=== PATIENT | male | born 1950 | race Caucasian/White ===

== ENCOUNTER 2018-09-19 17:07 | Inpatient (IN) | payer OTHER ==
[~2018-09-19] VITALS: Ht 175.3 cm; Wt 95.3 kg
[2018-09-19] MEDS ORDERED: OXYC10TA56 PO (18:47)
[2018-09-19] MEDS ORDERED: PERC10 GT (18:47)
[2018-09-19] MEDS ORDERED: ALPR0.5T PO (18:47)
[2018-09-19 18:50] VITALS: BP_SYST 199
[2018-09-19] MEDS ORDERED: OXYCODONE/ACETAMINOPHEN *10*mg/325 mg TABLET GT ONE (19:15)
[2018-09-19] MEDS: cloNIDine HCL 0.2 MG TABLET PO SCH (20:16)
[2018-09-19] MEDS: ALPRAZolam 0.25 MG TABLET PO SCH (20:18)
[2018-09-19 20:45] VITALS: BP_SYST 207
[2018-09-19] MEDS: LOSARTAN POTASSIUM 50 MG TABLET (COZAAR) PO SCH (23:24)
[2018-09-19] MEDS: cloNIDine HCL 0.1 MG TABLET PO PRN (23:24)
[2018-09-19] MEDS: CARVEDILOL 25 MG TABLET (COREG) PO SCH (23:25)
[2018-09-19] MEDS: CYCLOBENZAPRINE HCL 10 MG TABLET (FLEXERIL) PO SCH (23:26)
[2018-09-19] MEDS: ENOXAPARIN SODIUM 40 MG/0.4 ML SYRINGE SUBCUT SCH (23:27)
[2018-09-19] MEDS: OXYCODONE/ACETAMINOPHEN *10*mg/325 mg TABLET GT SCH (23:29)
[2018-09-20] VITALS (8 sets, daily range): BP systolic 137–192
[2018-09-20] MEDS: oxyCODONE HCL 10 MG TAB.ER.12H PO SCH (00:26)
[2018-09-20] MEDS: OXYCODONE/ACETAMINOPHEN *10*mg/325 mg TABLET GT SCH ×3 (06:16→16:57)
[2018-09-20 07:44] LABS: BASOPHILS % (AUTO) 0.3 % (0.0-2.0); EOSINOPHILS # (AUTO) 0.4 K/uL (0.0-0.4); EOSINOPHILS % (AUTO) 4.5 % (0.0-4.0); HEMOGLOBIN 12.7 g/dL (14.0-18.0); LYMPHOCYTES # (AUTO) 1.9 K/uL (1.0-5.5); LYMPHOCYTES % (AUTO) 24.3 % (20.5-51.5); MEAN CORPUSCULAR HEMOGLOBIN 30 pg (27-31); MEAN CORPUSCULAR HGB CONC 32 % (32-36); MEAN CORPUSCULAR VOLUME 95 fL (79.0-98.0); MONOCYTES # (AUTO) 0.7 K/uL (0.0-1.0); MONOCYTES % (AUTO) 9.2 % (1.7-9.3); NEUTROPHILS # (AUTO) 4.9 K/uL (1.8-7.7); NEUTROPHILS % (AUTO) 61.7 % (40.0-70.0); PLATELET COUNT (AUTO) 224 K/uL (130-430); RED BLOOD CELL COUNT(AUTO) 4.21 MIL/uL (4.2-6.2); RED CELL DISTRIBUTION WIDTH 14.7 % (9.0-15.0); WHITE BLOOD COUNT (AUTO) 7.9 K/uL (4.8-10.8)
[2018-09-20 07:54] LABS: CALCIUM 8.8 mg/dL (8.4-11.0); CREATININE 0.77 mg/dL (0.55-1.30)
[2018-09-20 08:10] LABS: POTASSIUM 2.8 mmol/L (3.5-5.1)
[2018-09-20] MEDS: CARVEDILOL 25 MG TABLET (COREG) PO SCH ×2 (08:54→21:08)
[2018-09-20] MEDS: LOSARTAN POTASSIUM 50 MG TABLET (COZAAR) PO SCH ×2 (08:55→21:09)
[2018-09-20] MEDS: cloNIDine HCL 0.2 MG TABLET PO SCH ×2 (08:55→21:08)
[2018-09-20] MEDS: KETOROLAC TROMETHAMINE 15 MG VIAL IVP PRN ×2 (08:57→19:02)
[2018-09-20] MEDS ORDERED: POTASSIUM CHLORIDE 20 MEQ TAB.PRT.SR PO ONE ×2 (11:00→15:00)
[2018-09-20] MEDS: cloNIDine HCL 0.1 MG TABLET PO PRN (15:07)
[2018-09-20] MEDS ORDERED: LOSARTAN POTASSIUM 50 MG TABLET (COZAAR) PO SCH (21:00)
[2018-09-20] MEDS: ALPRAZolam 0.25 MG TABLET PO SCH (21:03)
[2018-09-20] MEDS: CYCLOBENZAPRINE HCL 10 MG TABLET (FLEXERIL) PO SCH (21:08)
[2018-09-20] MEDS: ENOXAPARIN SODIUM 40 MG/0.4 ML SYRINGE SUBCUT SCH (21:09)
[2018-09-21] MEDS: OXYCODONE/ACETAMINOPHEN *10*mg/325 mg TABLET GT SCH ×5 (00:32→23:34)
[2018-09-21] MEDS: KETOROLAC TROMETHAMINE 15 MG VIAL IVP PRN (03:33)
[2018-09-21 07:32] LABS: CALCIUM 8.7 mg/dL (8.4-11.0); CREATININE 0.8 mg/dL (0.55-1.30); POTASSIUM 3.7 mmol/L (3.5-5.1)
[2018-09-21] MEDS: oxyCODONE HCL 10 MG TAB.ER.12H PO SCH (08:40)
[2018-09-21] MEDS: cloNIDine HCL 0.2 MG TABLET PO SCH ×2 (08:42→21:30)
[2018-09-21] MEDS: CARVEDILOL 25 MG TABLET (COREG) PO SCH ×2 (08:42→21:31)
[2018-09-21] MEDS: LOSARTAN POTASSIUM 50 MG TABLET (COZAAR) PO SCH ×2 (08:42→21:30)
[2018-09-21 12:01] VITALS: BP_SYST 149
[2018-09-21] MEDS ORDERED: ALPRAZolam 0.25 MG TABLET PO ONE (12:45)
[2018-09-21 17:23] VITALS: BP_SYST 168
[2018-09-21] MEDS: CYCLOBENZAPRINE HCL 10 MG TABLET (FLEXERIL) PO SCH (21:29)
[2018-09-21] MEDS: ALPRAZolam 0.25 MG TABLET PO SCH (21:29)
[2018-09-21] MEDS: MORPHINE SULFATE 15 MG TABLET.ER PO SCH (21:31)
[2018-09-21] MEDS: ENOXAPARIN SODIUM 40 MG/0.4 ML SYRINGE SUBCUT SCH (21:33)
[2018-09-22 00:55] VITALS: BP_SYST 174
[2018-09-22] MEDS: OXYCODONE/ACETAMINOPHEN *10*mg/325 mg TABLET GT SCH ×2 (05:40→11:50)
[2018-09-22 08:10] VITALS: BP_SYST 176
[2018-09-22] MEDS: cloNIDine HCL 0.2 MG TABLET PO SCH ×2 (09:32→20:32)
[2018-09-22] MEDS: MORPHINE SULFATE 15 MG TABLET.ER PO SCH ×2 (09:32→20:35)
[2018-09-22] MEDS: LOSARTAN POTASSIUM 50 MG TABLET (COZAAR) PO SCH ×2 (09:32→20:33)
[2018-09-22] MEDS: CARVEDILOL 25 MG TABLET (COREG) PO SCH ×2 (09:33→20:35)
[2018-09-22 12:09] VITALS: BP_SYST 170
[2018-09-22] MEDS: oxyCODONE HCL 10 MG TAB.ER.12H PO SCH (13:07)
[2018-09-22 16:02] VITALS: BP_SYST 148
[2018-09-22] MEDS: OXYCODONE/ACETAMINOPHEN *10*mg/325 mg TABLET PO SCH ×2 (18:20→23:53)
[2018-09-22] MEDS: ENOXAPARIN SODIUM 40 MG/0.4 ML SYRINGE SUBCUT SCH (20:33)
[2018-09-22] MEDS: CYCLOBENZAPRINE HCL 10 MG TABLET (FLEXERIL) PO SCH (20:34)
[2018-09-22] MEDS: ALPRAZolam 0.25 MG TABLET PO SCH (20:34)
[2018-09-22] MEDS: cloNIDine HCL 0.1 MG TABLET PO PRN (23:52)
[2018-09-23 00:21] VITALS: BP_SYST 164
[2018-09-23 04:15] VITALS: BP_SYST 156
[2018-09-23] MEDS: OXYCODONE/ACETAMINOPHEN *10*mg/325 mg TABLET PO SCH ×3 (06:25→17:05)
[2018-09-23] MEDS: CARVEDILOL 25 MG TABLET (COREG) PO SCH ×2 (08:59→20:56)
[2018-09-23] MEDS: cloNIDine HCL 0.2 MG TABLET PO SCH ×2 (08:59→20:55)
[2018-09-23] MEDS: LOSARTAN POTASSIUM 50 MG TABLET (COZAAR) PO SCH ×2 (08:59→20:54)
[2018-09-23] MEDS: MORPHINE SULFATE 15 MG TABLET.ER PO SCH ×2 (09:00→20:56)
[2018-09-23] MEDS: KETOROLAC TROMETHAMINE 15 MG VIAL IVP PRN (09:00)
[2018-09-23 11:54] VITALS: BP_SYST 140
[2018-09-23] MEDS: oxyCODONE HCL 5 MG TABLET PO PRN ×2 (13:20→17:38)
[2018-09-23 16:16] VITALS: BP_SYST 159
[2018-09-23 20:05] VITALS: BP_SYST 145
[2018-09-23 20:15] VITALS: BP_SYST 177
[2018-09-23] MEDS: ALPRAZolam 0.25 MG TABLET PO SCH (20:54)
[2018-09-23] MEDS: ENOXAPARIN SODIUM 40 MG/0.4 ML SYRINGE SUBCUT SCH (20:58)
[2018-09-23] MEDS: CYCLOBENZAPRINE HCL 10 MG TABLET (FLEXERIL) PO SCH (20:59)
[2018-09-24 00:02] VITALS: BP_SYST 142
[2018-09-24] MEDS: OXYCODONE/ACETAMINOPHEN *10*mg/325 mg TABLET PO SCH ×4 (00:13→17:34)
[2018-09-24] MEDS: KETOROLAC TROMETHAMINE 15 MG VIAL IVP PRN ×2 (06:53→13:26)
[2018-09-24 07:40] VITALS: BP_SYST 167
[2018-09-24] MEDS: cloNIDine HCL 0.2 MG TABLET PO SCH ×2 (08:37→21:26)
[2018-09-24] MEDS: MORPHINE SULFATE 15 MG TABLET.ER PO SCH ×2 (08:38→21:25)
[2018-09-24] MEDS: CARVEDILOL 25 MG TABLET (COREG) PO SCH ×2 (08:38→21:27)
[2018-09-24] MEDS: LOSARTAN POTASSIUM 50 MG TABLET (COZAAR) PO SCH ×2 (08:38→21:26)
[2018-09-24] MEDS: oxyCODONE HCL 5 MG TABLET PO PRN (12:04)
[2018-09-24 12:21] VITALS: BP_SYST 156
[2018-09-24] MEDS: cloNIDine HCL 0.1 MG TABLET PO PRN (15:34)
[2018-09-24 17:06] VITALS: BP_SYST 179
[2018-09-24 20:00] VITALS: BP_SYST 179
[2018-09-24] MEDS: ALPRAZolam 0.25 MG TABLET PO SCH (21:25)
[2018-09-24] MEDS: ENOXAPARIN SODIUM 40 MG/0.4 ML SYRINGE SUBCUT SCH (21:25)
[2018-09-24] MEDS: CYCLOBENZAPRINE HCL 10 MG TABLET (FLEXERIL) PO SCH (21:26)
[2018-09-25 00:06] VITALS: BP_SYST 165
[2018-09-25] MEDS: OXYCODONE/ACETAMINOPHEN *10*mg/325 mg TABLET PO SCH ×4 (00:09→18:15)
[2018-09-25] MEDS: cloNIDine HCL 0.1 MG TABLET PO PRN (00:14)
[2018-09-25 03:45] VITALS: BP_SYST 126
[2018-09-25 08:00] VITALS: BP_SYST 143
[2018-09-25] MEDS: MORPHINE SULFATE 15 MG TABLET.ER PO SCH ×2 (08:58→20:53)
[2018-09-25] MEDS: CARVEDILOL 25 MG TABLET (COREG) PO SCH ×2 (08:59→20:53)
[2018-09-25] MEDS: LOSARTAN POTASSIUM 50 MG TABLET (COZAAR) PO SCH ×2 (08:59→22:24)
[2018-09-25] MEDS: cloNIDine HCL 0.2 MG TABLET PO SCH ×2 (09:00→20:54)
[2018-09-25] MEDS: oxyCODONE HCL 5 MG TABLET PO PRN ×2 (10:19→17:07)
[2018-09-25 12:40] VITALS: BP_SYST 143
[2018-09-25 16:58] VITALS: BP_SYST 138
[2018-09-25 20:00] VITALS: BP_SYST 186
[2018-09-25] MEDS: CYCLOBENZAPRINE HCL 10 MG TABLET (FLEXERIL) PO SCH (20:53)
[2018-09-25] MEDS: ENOXAPARIN SODIUM 40 MG/0.4 ML SYRINGE SUBCUT SCH (20:55)
[2018-09-25] MEDS: ALPRAZolam 0.25 MG TABLET PO SCH (22:22)
[2018-09-26] MEDS: OXYCODONE/ACETAMINOPHEN *10*mg/325 mg TABLET PO SCH ×4 (00:58→18:49)
[2018-09-26 01:57] VITALS: BP_SYST 149
[2018-09-26 08:00] VITALS: BP_SYST 157
[2018-09-26] MEDS: MORPHINE SULFATE 15 MG TABLET.ER PO SCH ×2 (08:54→20:29)
[2018-09-26] MEDS: LOSARTAN POTASSIUM 50 MG TABLET (COZAAR) PO SCH ×2 (08:55→20:29)
[2018-09-26] MEDS: cloNIDine HCL 0.2 MG TABLET PO SCH ×2 (08:56→20:28)
[2018-09-26] MEDS: CARVEDILOL 25 MG TABLET (COREG) PO SCH ×2 (08:56→20:28)
[2018-09-26 12:47] VITALS: BP_SYST 149
[2018-09-26 16:54] VITALS: BP_SYST 140
[2018-09-26 19:51] VITALS: BP_SYST 160
[2018-09-26] MEDS: CYCLOBENZAPRINE HCL 10 MG TABLET (FLEXERIL) PO SCH (20:29)
[2018-09-26] MEDS: ALPRAZolam 0.25 MG TABLET PO SCH (20:29)
[2018-09-26] MEDS: ENOXAPARIN SODIUM 40 MG/0.4 ML SYRINGE SUBCUT SCH (20:31)
[2018-09-27 00:42] VITALS: BP_SYST 137
[2018-09-27] MEDS: OXYCODONE/ACETAMINOPHEN *10*mg/325 mg TABLET PO SCH ×4 (01:30→17:07)
[2018-09-27 08:57] VITALS: BP_SYST 151
[2018-09-27] MEDS: CARVEDILOL 25 MG TABLET (COREG) PO SCH ×2 (09:00→19:57)
[2018-09-27] MEDS: LOSARTAN POTASSIUM 50 MG TABLET (COZAAR) PO SCH ×2 (09:00→19:59)
[2018-09-27] MEDS: cloNIDine HCL 0.2 MG TABLET PO SCH ×2 (09:00→19:59)
[2018-09-27] MEDS: MORPHINE SULFATE 15 MG TABLET.ER PO SCH ×2 (09:00→20:00)
[2018-09-27 12:49] VITALS: BP_SYST 152
[2018-09-27 16:00] VITALS: BP_SYST 154
[2018-09-27 17:44] VITALS: BP_SYST 154
[2018-09-27] MEDS: ALPRAZolam 0.25 MG TABLET PO SCH (19:51)
[2018-09-27] MEDS: CYCLOBENZAPRINE HCL 10 MG TABLET (FLEXERIL) PO SCH (19:58)
[2018-09-27] MEDS: ENOXAPARIN SODIUM 40 MG/0.4 ML SYRINGE SUBCUT SCH (20:01)
== END 2018-09-27 22:23 | DRG 552 ==
LOC: SMU 18:14
PROVIDERS: ADMIT Family Medicine; ATTEND Family Medicine
DX: M51.16 Intervertebral disc disorders with radiculopathy, lumbar region (principal); I10 Essential (primary) hypertension; R29.6 Repeated falls; G89.29 Other chronic pain; M17.0 Bilateral primary osteoarthritis of knee; R53.1 Weakness
CPT/HCPCS: 36415; 72146; 72148; 73564; 80048; 83735-TC; 85025; 97110-GP; 97116-GP; 97530-GP; J1650; J1885

== ENCOUNTER 2018-11-13 14:36 | Outpatient (CLI) | payer OTHER ==
[2018-11-09 12:22] LABS: BASOPHILS # (AUTO) 0.1 K/uL (0.0-0.2); MEAN CORPUSCULAR HEMOGLOBIN 31 pg (27-31); MONOCYTES # (AUTO) 0.8 K/uL (0.0-1.0)
[2018-11-09 12:24] LABS: BILIRUBIN,URINE NEGATIVE (NEGATIVE); BLOOD, URINE NEGATIVE (NEGATIVE); CLARITY/URINE CLEAR (CLEAR); COLOR,URINE YELLOW (YELLOW); GLUCOSE,URINE NEGATIVE (NEGATIVE); KETONES,URINE NEGATIVE (NEGATIVE); LEUKOCYTE ESTERASE ,URINE NEGATIVE (NEGATIVE); NITRITE, URINE NEGATIVE (NEGATIVE); PH,URINE 5.5 (5.0-8.0); PROTEIN URINE NEGATIVE (NEGATIVE); UROBILINOGEN,URINE 0.2 (0.2-1.0)
[2018-11-09 12:36] LABS: CALCIUM 9.3 mg/dL (8.4-11.0); CREATININE 0.81 mg/dL (0.55-1.30); POTASSIUM 4.3 mmol/L (3.5-5.1)
[2018-11-09 12:37] LABS: HEMOGLOBIN 14.8 g/dL (14.0-18.0); MEAN CORPUSCULAR HGB CONC 34 % (32-36); MEAN CORPUSCULAR VOLUME 91 fL (79.0-98.0); RED BLOOD CELL COUNT(AUTO) 4.81 MIL/uL (4.2-6.2); WHITE BLOOD COUNT (AUTO) 9.8 K/uL (4.8-10.8)
[2018-11-09 12:38] LABS: BASOPHILS % (AUTO) 0.7 % (0.0-2.0); EOSINOPHILS # (AUTO) 0.7 K/uL (0.0-0.4); LYMPHOCYTES # (AUTO) 2.4 K/uL (1.0-5.5); LYMPHOCYTES % (AUTO) 24.5 % (20.5-51.5); MONOCYTES % (AUTO) 7.8 % (1.7-9.3); NEUTROPHILS # (AUTO) 5.8 K/uL (1.8-7.7); PLATELET COUNT (AUTO) 261 K/uL (130-430); RED CELL DISTRIBUTION WIDTH 13.6 % (9.0-15.0)
[~2018-11-13] VITALS: Ht 175.3 cm; Wt 95.3 kg
[~2018-11-13 14:36] MED LIST: ALPR0.5T PO; CAT.1 PO; OXYC10TA56 PO; PERC10 PO
[2018-11-23] MEDS ORDERED: HYDR-4274 PO (13:41)
== END 2018-11-13 20:50 | disposition home or self-care (01) ==
LOC: SLB 14:36
PROVIDERS: ATTEND Orthopaedic Surgery
DX: Z01.818 Encounter for other preprocedural examination (principal); I51.7 Cardiomegaly; Z96.652 Presence of left artificial knee joint
CPT/HCPCS: 36415; 71046-TC; 80048; 81003; 85025; 85610-TC; 85730-TC; 87081

== ENCOUNTER 2018-11-20 06:20 | Inpatient (IN) | payer OTHER ==
[~2018-11-20] VITALS: Ht 175.3 cm; Wt 95.3 kg
[~2018-11-20 06:20] MED LIST changes: +PERC10 GT; -PERC10 PO
[2018-11-20] MEDS ORDERED: GABAPENTIN 300 MG CAPSULE ONE (06:49)
[2018-11-20] MEDS ORDERED: ACETAMINOPHEN 500 MG TABLET ONE (06:49)
[2018-11-20] MEDS ORDERED: CELECOXIB 200 MG CAPSULE ONE (06:49)
[2018-11-20] MEDS ORDERED: TRANEXAMIC ACID 650 MG TABLET ONE (06:50)
[2018-11-20] MEDS ORDERED: oxyCODONE HCL 10 MG TAB.ER.12H PO ONE (06:50)
[2018-11-20] MEDS ORDERED: CEFAZOLIN 2 GM IVPB PREMIX 50 ML IV ONE (07:22)
[2018-11-20] MEDS ORDERED: POLYMYXIN 500,000/BACIT.10,000 UNITS in NS IRR 1 L IR ONE (07:28)
[2018-11-20] MEDS ORDERED: FAMO20TA8 PO (07:41)
[2018-11-20] MEDS ORDERED: CYCL-10 PO (07:41)
[2018-11-20] MEDS ORDERED: ALPR1TAB2 PO (07:41)
[2018-11-20] MEDS ORDERED: LOSA50TA3 PO (07:41)
[2018-11-20] MEDS ORDERED: CAT2PAT TD (07:41)
[2018-11-20] MEDS ORDERED: CARV25TA55 PO (07:41)
[2018-11-20] MEDS ORDERED: MORP15TA PO (07:41)
[2018-11-20] MEDS ORDERED: LR 1,000 ML IV.SOLN IV ONE (08:05)
[2018-11-20] MEDS ORDERED: TRANEXAMIC ACID 1,000 MG/10 ML VIAL IV ONE (08:05)
[2018-11-20] MEDS ORDERED: PROPOFOL 200MG/ 20ML VIAL (DIPRIVAN) IV ONE (08:05)
[2018-11-20] MEDS ORDERED: MIDAZOLAM HCL 5 MG/5 ML VIAL IVP ONE (08:05)
[2018-11-20] MEDS ORDERED: BUPIVACAINE /PF 0.75% 10 ML VIAL INJ ONE (08:05)
[2018-11-20] MEDS ORDERED: ONDANSETRON HCL 4 MG/2 ML VIAL IVP ONE (08:05)
[2018-11-20] MEDS ORDERED: ROPIVACAINE HCL/PF 5 MG/ML 0.5% 30 ML VIAL INJ ONE (08:05)
[2018-11-20] MEDS ORDERED: MORPHINE SULFATE 10MG/10ML PF AMP EP ONE (08:05)
[2018-11-20] MEDS ORDERED: ROPIVACAINE HCL/PF 0.2% (NAROPIN) 200 ML PLAST..BAG EP ONE (08:05)
[2018-11-20] MEDS ORDERED: D5/0.45 NS 1,000 ML IV ONE (08:23)
[2018-11-20] MEDS ORDERED: ACETAMINOPHEN 325 MG TABLET PO PRN (08:30)
[2018-11-20] MEDS ORDERED: HYDROcodone/ACETAMIN 7.5-325 MG TAB PO PRN (08:30)
[2018-11-20] MEDS ORDERED: BISACODYL 10 MG/SUPPOSITORY RC PRN (08:30)
[2018-11-20] MEDS ORDERED: MORPHINE SULFATE 10 MG/ML VIAL IM PRN (08:30)
[2018-11-20] MEDS: CEFAZOLIN 1 GM IVPB PREMIX 50 ML IV SCH ×2 (09:00→17:00)
[2018-11-20] MEDS ORDERED: GABAPENTIN 300 MG CAPSULE PO ONE (09:15)
[2018-11-20] MEDS ORDERED: CELECOXIB 200 MG CAPSULE PO ONE (09:15)
[2018-11-20] MEDS ORDERED: TRANEXAMIC ACID 650 MG TABLET PO ONE (09:15)
[2018-11-20] MEDS ORDERED: ACETAMINOPHEN 500 MG TABLET PO ONE ×2 (09:15)
[2018-11-20 11:57] VITALS: BP_SYST 135
[2018-11-20] MEDS ORDERED: RIVAROXABAN 10 MG TABLET PO ONE (12:00)
[2018-11-20] MEDS ORDERED: LR 1,000 ML IV SCH (12:49)
[2018-11-20] MEDS ORDERED: DIPHENHYDRAMINE INJ 50 MG/ML VIAL IM PRN (13:00)
[2018-11-20] MEDS ORDERED: ONDANSETRON HCL 4 MG/2 ML VIAL IVP PRN ×2 (13:00)
[2018-11-20] MEDS ORDERED: KETOROLAC TROMETHAMINE 60 MG/2 ML VIAL IM PRN (13:00)
[2018-11-20] MEDS ORDERED: MORPHINE SULFATE 10MG/10ML PF AMP SP SCH (13:00)
[2018-11-20] MEDS ORDERED: NALOXONE HCL 0.4 MG/ML AMP (NARCAN) IVP PRN (13:00)
[2018-11-20] MEDS: HYDROcodone/ACETAMIN 10-325 MG TAB PO PRN (15:19)
[2018-11-20] MEDS ORDERED: KETOROLAC TROMETHAMINE 30 MG VIAL ONE (20:42)
[2018-11-20] MEDS: MORPHINE SULFATE 30 MG Immediate Release TABLET PO SCH (22:41)
[2018-11-20] MEDS ORDERED: LOSARTAN POTASSIUM 50 MG TABLET (COZAAR) ONE (22:43)
[2018-11-20] MEDS ORDERED: CARVEDILOL 25 MG TABLET (COREG) ONE (22:43)
[2018-11-20] MEDS: LOSARTAN POTASSIUM 50 MG TABLET (COZAAR) PO SCH (22:43)
[2018-11-20] MEDS: CARVEDILOL 25 MG TABLET (COREG) PO SCH (22:43)
[2018-11-20] MEDS ORDERED: MORPHINE SULFATE 30 MG Immediate Release TABLET ONE (22:48)
[2018-11-21] MEDS: HYDROcodone/ACETAMIN 10-325 MG TAB PO PRN ×2 (00:04→15:06)
[2018-11-21 01:22] VITALS: BP_SYST 164
[2018-11-21] MEDS ORDERED: MORPHINE SULFATE 10 MG/ML VIAL IM PRN (02:00)
[2018-11-21] MEDS ORDERED: MORPHINE SULFATE 10 MG/ML VIAL ONE (02:05)
[2018-11-21] MEDS: MORPHINE SULFATE 10 MG/ML VIAL IM PRN ×4 (03:34→20:56)
[2018-11-21] MEDS: KETOROLAC TROMETHAMINE 15 MG VIAL IVP PRN ×3 (06:05→22:08)
[2018-11-21 06:39] LABS: BASOPHILS % (AUTO) 0.4 % (0.0-2.0); EOSINOPHILS # (AUTO) 0.6 K/uL (0.0-0.4); EOSINOPHILS % (AUTO) 4.7 % (0.0-4.0); HEMATOCRIT 35.8 % (36-54); HEMOGLOBIN 11.8 g/dL (14.0-18.0); LYMPHOCYTES # (AUTO) 1.9 K/uL (1.0-5.5); LYMPHOCYTES % (AUTO) 16.4 % (20.5-51.5); MEAN CORPUSCULAR HEMOGLOBIN 31 pg (27-31); MEAN CORPUSCULAR HGB CONC 33 % (32-36); MEAN CORPUSCULAR VOLUME 92 fL (79.0-98.0); MONOCYTES # (AUTO) 1.5 K/uL (0.0-1.0); MONOCYTES % (AUTO) 12.6 % (1.7-9.3); NEUTROPHILS # (AUTO) 7.8 K/uL (1.8-7.7); NEUTROPHILS % (AUTO) 65.9 % (40.0-70.0); PLATELET COUNT (AUTO) 212 K/uL (130-430); RED BLOOD CELL COUNT(AUTO) 3.88 MIL/uL (4.2-6.2); RED CELL DISTRIBUTION WIDTH 14.3 % (9.0-15.0); WHITE BLOOD COUNT (AUTO) 11.8 K/uL (4.8-10.8)
[2018-11-21 06:41] LABS: CALCIUM 8.1 mg/dL (8.4-11.0); CREATININE 0.95 mg/dL (0.55-1.30); POTASSIUM 3.9 mmol/L (3.5-5.1)
[2018-11-21] MEDS: FAMOTIDINE 20 MG TABLET PO SCH ×2 (06:55→16:59)
[2018-11-21 07:42] VITALS: BP_SYST 169
[2018-11-21] MEDS: LOSARTAN POTASSIUM 50 MG TABLET (COZAAR) PO SCH ×2 (08:07→20:11)
[2018-11-21] MEDS: RIVAROXABAN 10 MG TABLET PO SCH (08:08)
[2018-11-21] MEDS: MORPHINE SULFATE 30 MG Immediate Release TABLET PO SCH ×2 (08:09→20:10)
[2018-11-21] MEDS: CARVEDILOL 25 MG TABLET (COREG) PO SCH ×2 (08:10→20:11)
[2018-11-21] MEDS: CYCLOBENZAPRINE HCL 10 MG TABLET (FLEXERIL) PO SCH ×3 (08:10→20:11)
[2018-11-21] MEDS ORDERED: cloNIDine HCL 0.2 MG/24 HR PATCH.TDWK TD SCH (09:00)
[2018-11-21 11:17] VITALS: BP_SYST 178
[2018-11-21 12:17] VITALS: BP_SYST 155
[2018-11-21] MEDS ORDERED: ONDANSETRON HCL 4 MG/2 ML VIAL IVP PRN (13:45)
[2018-11-21] MEDS: cloNIDine HCL 0.1 MG TABLET PO SCH ×2 (15:06→20:11)
[2018-11-21 16:51] VITALS: BP_SYST 143
[2018-11-21 20:00] VITALS: BP_SYST 159
[2018-11-21] MEDS: ALPRAZolam 0.25 MG TABLET PO SCH (20:12)
[2018-11-22 00:30] VITALS: BP_SYST 148
[2018-11-22] MEDS: MORPHINE SULFATE 10 MG/ML VIAL IM PRN ×5 (01:09→22:51)
[2018-11-22] MEDS: HYDROcodone/ACETAMIN 10-325 MG TAB PO PRN ×3 (02:29→16:16)
[2018-11-22] MEDS: FAMOTIDINE 20 MG TABLET PO SCH ×2 (06:45→16:16)
[2018-11-22] MEDS: ROPIVACAINE 0.2% 100 ML INJ SCH ×3 (07:22→13:37)
[2018-11-22 07:44] VITALS: BP_SYST 172
[2018-11-22] MEDS: KETOROLAC TROMETHAMINE 15 MG VIAL IVP PRN ×2 (08:30→20:01)
[2018-11-22] MEDS: cloNIDine HCL 0.1 MG TABLET PO SCH ×3 (08:31→20:05)
[2018-11-22] MEDS: MORPHINE SULFATE 30 MG Immediate Release TABLET PO SCH ×2 (08:32→20:03)
[2018-11-22] MEDS: CARVEDILOL 25 MG TABLET (COREG) PO SCH ×2 (08:32→20:06)
[2018-11-22] MEDS: CYCLOBENZAPRINE HCL 10 MG TABLET (FLEXERIL) PO SCH ×3 (08:32→20:06)
[2018-11-22] MEDS: LOSARTAN POTASSIUM 50 MG TABLET (COZAAR) PO SCH ×2 (08:33→20:06)
[2018-11-22] MEDS: RIVAROXABAN 10 MG TABLET PO SCH (08:34)
[2018-11-22 12:46] VITALS: BP_SYST 154
[2018-11-22 16:10] VITALS: BP_SYST 166
[2018-11-22] MEDS ORDERED: MILK OF MAGNESIA 30 ML UDC PO PRN (18:45)
[2018-11-22 20:00] VITALS: BP_SYST 173
[2018-11-22] MEDS: ALPRAZolam 0.25 MG TABLET PO SCH (20:05)
[2018-11-23 00:12] VITALS: BP_SYST 149
[2018-11-23] MEDS: ROPIVACAINE 0.2% 100 ML INJ SCH (02:07)
[2018-11-23] MEDS: MORPHINE SULFATE 10 MG/ML VIAL IM PRN ×3 (04:45→16:56)
[2018-11-23] MEDS: FAMOTIDINE 20 MG TABLET PO SCH ×2 (06:20→16:45)
[2018-11-23] MEDS: HYDROcodone/ACETAMIN 10-325 MG TAB PO PRN (06:21)
[2018-11-23 07:46] VITALS: BP_SYST 141
[2018-11-23] MEDS ORDERED: DOCUSATE SODIUM 250 MG CAPSULE PO SCH (09:00)
[2018-11-23] MEDS: MORPHINE SULFATE 30 MG Immediate Release TABLET PO SCH (09:04)
[2018-11-23] MEDS: LOSARTAN POTASSIUM 50 MG TABLET (COZAAR) PO SCH (09:04)
[2018-11-23] MEDS: CYCLOBENZAPRINE HCL 10 MG TABLET (FLEXERIL) PO SCH ×2 (09:04→14:48)
[2018-11-23] MEDS: cloNIDine HCL 0.1 MG TABLET PO SCH ×2 (09:05→14:49)
[2018-11-23] MEDS: CARVEDILOL 25 MG TABLET (COREG) PO SCH (09:05)
[2018-11-23] MEDS: RIVAROXABAN 10 MG TABLET PO SCH (09:06)
[2018-11-23] MEDS: KETOROLAC TROMETHAMINE 15 MG VIAL IVP PRN (11:41)
[2018-11-23 12:49] VITALS: BP_SYST 143
[2018-11-23] MEDS ORDERED: RIVA10TA PO (13:40)
[2018-11-23] MEDS ORDERED: HYDR-2489 PO (13:41)
[2018-11-23 16:15] VITALS: BP_SYST 148
== END 2018-11-23 18:28 | DRG 470 ==
LOC: SMU 06:20
PROVIDERS: ADMIT Orthopaedic Surgery; ATTEND Orthopaedic Surgery
PROC: 3E0T3BZ Introduction of Anesthetic Agent into Peripheral Nerves and Plexi, Percutaneous Approach (ICD-10-PCS; 2018-11-20)
PROC: 0SRD0JA Replacement of Left Knee Joint with Synthetic Substitute, Uncemented, Open Approach (ICD-10-PCS; principal; 2018-11-20 08:30)
DX: M17.0 Bilateral primary osteoarthritis of knee (principal); I10 Essential (primary) hypertension; G89.29 Other chronic pain; D64.9 Anemia, unspecified; E66.09 Other obesity due to excess calories; G62.9 Polyneuropathy, unspecified; Z87.891 Personal history of nicotine dependence; Z68.31 Body mass index [BMI] 31.0-31.9, adult
CPT/HCPCS: 36415; 80048; 85025; 87081; 88305; 88311; 97039; 97110-GP; 97116-GP; 97530-GP; C1713; C1776; J0690; J1885; J2250; J2270; J2274; J2405; J2704; J2795; J3490; J7120

== ENCOUNTER 2018-12-15 14:19 | Inpatient (IN) | payer OTHER ==
[~2018-12-15] VITALS: Ht 172.7 cm; Wt 104.3 kg
[~2018-12-15 14:19] MED LIST changes: +ALPR1TAB2 PO; +CARV25TA55 PO; +CAT2PAT TD; +CYCL-10 PO; +FAMO20TA8 PO; +HYDR-4274 PO; +LOSA50TA3 PO; +MORP15TA PO; -PERC10 GT; +PERC10 PO; +RIVA10TA PO
--- NOTE | 2018-12-15 14:30 | NUR ---
Placed in room 03 . Placed on desk monitor, blood pressure machine and pulse oximeter. To gown for exam. Side rails up.
--- NOTE | 2018-12-15 14:33 | NUR ---
ER Dr. Yun at bedside examining patient.
[2018-12-15 14:34] VITALS: BP_SYST 184
--- NOTE | 2018-12-15 14:35 | NUR ---
Pt AOx3 brought in pt; denies N/V/D. Skin pink dry and warm, breathing even and unlabored. of pt had surgery to left knee 3 weeks ago at [facility] and [place] 2 weeks ago. of pt states pt not able to ambulate since surgey. EKG completed upon arrival. Will continue to monitor.
--- NOTE | 2018-12-15 14:35 | NUR ---
Note armandoearl in EDM - 12/15/18 at 1514 by AMEYAEDEARNESTINE Pt AOx4 brought in pt; denies N/V/D. Skin pink dry and warm, breathing even and unlabored. of pt had surgery to left knee 3 weeks ago at [facility] and [facility] 2 weeks ago. of pt states pt not able to ambulate since surgey. EKG completed upon arrival. Will continue to monitor.
--- NOTE | 2018-12-15 15:05 | NUR ---
Pt to Ct with radiology staff via rubén
[2018-12-15 15:10] LABS: BASOPHILS % (AUTO) 1.2 % (0.0-2.0); EOSINOPHILS % (AUTO) 11.5 % (0.0-4.0); HEMATOCRIT 31.9 % (36-54); HEMOGLOBIN 10.7 g/dL (14.0-18.0); LYMPHOCYTES # (AUTO) 1.9 K/uL (1.0-5.5); LYMPHOCYTES % (AUTO) 18.6 % (20.5-51.5); MEAN CORPUSCULAR HEMOGLOBIN 30 pg (27-31); MEAN CORPUSCULAR HGB CONC 33 % (32-36); MEAN CORPUSCULAR VOLUME 90 fL (79.0-98.0); MONOCYTES % (AUTO) 8.8 % (1.7-9.3); NEUTROPHILS # (AUTO) 6.1 K/uL (1.8-7.7); NEUTROPHILS % (AUTO) 59.9 % (40.0-70.0); PLATELET COUNT (AUTO) 366 K/uL (130-430); RED BLOOD CELL COUNT(AUTO) 3.55 MIL/uL (4.2-6.2); WHITE BLOOD COUNT (AUTO) 10.1 K/uL (4.8-10.8)
[2018-12-15 15:11] LABS: BASOPHILS # (AUTO) 0.1 K/uL (0.0-0.2); EOSINOPHILS # (AUTO) 1.2 K/uL (0.0-0.4); MONOCYTES # (AUTO) 0.9 K/uL (0.0-1.0)
--- NOTE | 2018-12-15 15:20 | NUR ---
Pt back to ER bed [address] with radiology staff
[2018-12-15 15:23] LABS: PROTHROMBIN TIME 10.6 SECS (9.5-12.5)
[2018-12-15 15:29] LABS: ANION GAP 5 (5-15); CALCIUM 9.4 mg/dL (8.4-11.0); CHLORIDE 100 mmol/L (98-107); CREATININE 0.96 mg/dL (0.55-1.30); GLUCOSE 94 mg/dL (70-99); POTASSIUM 3.8 mmol/L (3.5-5.1); SODIUM SERUM 136 mmol/L (136-145); UREA NITROGEN, BLOOD 15 mg/dL (8-21)
[2018-12-15 15:33] LABS: GFR AFRICAN AMERICAN 100 mL/min (>90)
[2018-12-15 15:34] LABS: ALANINE AMINOTRANSFERASE 36 U/L (12-78); ALBUMIN 3.3 g/dL (3.4-4.8); ASPARTATE AMINOTRANSFERASE 30 U/L (10-37); C-REACTIVE PROTEIN QUANT 4.6 mg/dL (0-0.5); TOTAL BILIRUBIN 0.7 mg/dL (0.0-1.0)
[2018-12-15 15:36] LABS: ALCOHOL, BLOOD < 3 mg/dL (<10)
[2018-12-15 16:13] LABS: BILIRUBIN,URINE NEGATIVE (NEGATIVE); CLARITY/URINE CLEAR (CLEAR); COLOR,URINE YELLOW (YELLOW); GLUCOSE,URINE NEGATIVE (NEGATIVE); KETONES,URINE NEGATIVE (NEGATIVE); LEUKOCYTE ESTERASE ,URINE NEGATIVE (NEGATIVE); NITRITE, URINE NEGATIVE (NEGATIVE); PH,URINE 5.5 (5.0-8.0); PROTEIN URINE NEGATIVE (NEGATIVE); UROBILINOGEN,URINE 0.2 (0.2-1.0)
[2018-12-15 16:19] LABS: BLOOD, URINE TRACE (NEGATIVE)
[2018-12-15 16:20] LABS: BACTERIA,URINE FEW /HPF (None Seen); MUCUS,URINE None Seen /LPF (None Seen); RBC,URINE NONE SEEN /HPF (0-3); WBC,URINE 0-3 /HPF (0-3)
[2018-12-15 16:24] LABS: BARBITURATE, URINE NEGATIVE (NEG <=200); BENZODIAZEPINE, URINE POSITIVE (NEG <=150); CANNABINOID, URINE NEGATIVE (NEG <=50); COCAINE, URINE NEGATIVE (NEG <=150); METHAMPHETAMINES SCREEN,URINE NEGATIVE (NEG <=500); OPIATE, URINE POSITIVE (NEG <=100); PHENCYCLIDINE SCREEN,URINE NEGATIVE (NEG <=25); UR TRICYCLIC ANTIDEPRESSANTS NEGATIVE (NEG <=300); URINE AMPHETAMINE NEGATIVE (NEG <=500); URINE METHADONE NEGATIVE (NEG <=200); URINE OXYCODONE SCREEN POSITIVE (NEG <=100); URINE PROPOXYPHENE SCREEN NEGATIVE (NEG <=300)
--- NOTE | 2018-12-15 16:25 | NUR ---
Telephone admit orders received from Dr. Luna and entered.
[2018-12-15] MEDS ORDERED: KETOROLAC TROMETHAMINE 30 MG VIAL IM ONE (17:00)
--- NOTE | 2018-12-15 17:04 | NUR ---
Pt medicated 10/10 pain to left knee. Will continue to monitor.
--- NOTE | 2018-12-15 17:10 | NUR ---
Patient will be admitted to care of Dr. Luna. Admitted to Tele unit. Will go to room 120C. Belongings list completed. Summary report printed. Report will be given at bedside to Yanelis LUCIANO.
--- NOTE | 2018-12-15 17:20 | NUR ---
admission notes rec patien in room 120 c from er in a strecher/guerney with a dx of aloc. asleep but arousable to stimuli.. resp easy and unlabored. no sob noted. bed to the lowest position and side rails up and locked. ivl on the l ac intact. no infiltration noted.
[2018-12-15 17:30] VITALS: BP_SYST 156
--- NOTE | 2018-12-15 19:30 | NUR ---
OPENING NOTE Patient and report was received from day shift nurse, ANKITA Hilario. Patient is AAO x 3, resting in bed. No s/s of acute distress. Awaiting for Dr. Luna to come see patient. Safety and fall precautions in place. Room near nurses station. Educated on how to use call light. Will continue to monitor.
[2018-12-15] MEDS ORDERED: KETOROLAC TROMETHAMINE 15 MG VIAL IVP PRN (20:30)
[2018-12-15] MEDS: FAMOTIDINE 20 MG TABLET PO SCH (20:59)
[2018-12-15] MEDS: ALPRAZolam 0.25 MG TABLET PO SCH (20:59)
[2018-12-15] MEDS: LOSARTAN POTASSIUM 50 MG TABLET (COZAAR) PO SCH (20:59)
[2018-12-15 21:00] VITALS: BP_SYST 152
[2018-12-15] MEDS ORDERED: CARVEDILOL 25 MG TABLET (COREG) PO SCH (21:00)
[2018-12-15] MEDS ORDERED: cloNIDine HCL 0.2 MG/24 HR PATCH.TDWK TD SCH (21:00)
[2018-12-15] MEDS: MORPHINE SULFATE 30 MG Immediate Release TABLET PO SCH (21:01)
[2018-12-15] MEDS: cloNIDine HCL 0.1 MG TABLET PO SCH (21:01)
--- NOTE | 2018-12-15 21:01 | NUR ---
TRANSFER OF CARE Bedside report received from admit nurse, ANKITA Suggs. Patient received in bed, awake, no s/s of acute distress noted. Breathing is even and unlabored. HOB raised. Zaira present at bedside. Three side rails are up. Bed is locked and at lowest position. Call light with patient. Will continue to monitor.
--- NOTE | 2018-12-15 21:01 | NUR ---
ENDORSED CARE Patient and report given to ANKITA Gonzalez for assumption of care.
--- NOTE | 2018-12-15 23:00 | NUR ---
ROUNDS Patient sleeping at this time. HOB raised. No signs of discomfort noted. Chest rise and fall even bilaterally. Call light with patient. Bed alarm on. Will continue to monitor.
[2018-12-16] VITALS: BP_SYST 144
[2018-12-16] MEDS: OXYCODONE/ACETAMINOPHEN *10*mg/325 mg TABLET GT SCH ×5 (00:01→22:01)
--- NOTE | 2018-12-16 01:00 | NUR ---
ROUNDS Patient in bed sleeping at this time. No signs of discomfort noted. Chest rise and fall even bilaterally. Call light with patient. Bed alarm on. Will continue to monitor.
--- NOTE | 2018-12-16 03:00 | NUR ---
ROUNDS Patient sleeping comfortably. No s/s of acute distress noted. Breathing even and unlabored. HOB raised. Call light with patient. Bed alarm on. Will continue to monitor.
--- NOTE | 2018-12-16 05:00 | NUR ---
ROUNDS/DR FABIAN AT BEDSIDE Dr. Fabian assessing patient at bedside. Patient awake, alert, able to answer questions. No signs of discomfort noted. Chest rise and fall even bilaterally. Call light with patient. Bed alarm on. Will continue to monitor.
[2018-12-16] MEDS ORDERED: MILK OF MAGNESIA 30 ML UDC PO PRN (05:45)
--- NOTE | 2018-12-16 06:47 | NUR ---
CLOSING NOTES Patient sleeping at this time. No s/s of acute distress noted. Breathing is even and unlabored. HOB raised. Trapeze present at bedside. IV site patent, no signs of infiltration or infection noted. All needs met throughout shift. Fall and safety precautions maintained throughout shift. Will continue to monitor until patient care is endorsed to oncoming dayshift nurse.
--- NOTE | 2018-12-16 07:16 | NUR ---
Nutrition Update Rian Scale 15 noted. Pt admitted for ALOC Diet: cardiac low CHOL low fat 2gm Na diet BMI: 35 kg/m2 RD to follow per nutrition care standards.
[2018-12-16 07:50] VITALS: BP_SYST 146
--- NOTE | 2018-12-16 07:52 | NUR ---
opening notes, pt in bed, was asleep, awaken by r.t. fro breathing treatment. pt is aaox2,samoan speaking, denies pain, no sob, no resp distress. vitals wnl. pt is afebrile. pt has saline lock. intact and patent, no s/s of swelling or infiltration. safety precaution in place. sitter at beside. call light in reach, bed in low position. will cont to monitor.
[2018-12-16] MEDS: DOCUSATE SODIUM 100 MG CAPSULE PO SCH ×2 (08:40→20:06)
[2018-12-16] MEDS: cloNIDine HCL 0.1 MG TABLET PO SCH ×3 (08:41→20:07)
[2018-12-16] MEDS: FAMOTIDINE 20 MG TABLET PO SCH ×2 (08:42→20:06)
[2018-12-16] MEDS: LOSARTAN POTASSIUM 50 MG TABLET (COZAAR) PO SCH ×2 (08:42→20:07)
[2018-12-16] MEDS: MORPHINE SULFATE 30 MG Immediate Release TABLET PO SCH ×2 (08:42→20:06)
[2018-12-16] MEDS: CARVEDILOL 25 MG TABLET (COREG) PO SCH ×2 (08:43→17:12)
[2018-12-16] MEDS: RIVAROXABAN 10 MG TABLET PO SCH (08:46)
--- NOTE | 2018-12-16 09:52 | NUR ---
PT SLEEPING COMFORTABLY, NO S/S OF PAIN, NO SOB. SITTER AT BEDSIDE.
[2018-12-16 11:30] VITALS: BP_SYST 126
[2018-12-16] MEDS ORDERED: cloNIDine HCL 0.2 MG/24 HR PATCH.TDWK TD SCH (12:00)
--- NOTE | 2018-12-16 12:11 | NUR ---
PT EATING LUNCH, NO C/IO PAIN, NO SOB.
--- NOTE | 2018-12-16 14:21 | NUR ---
PT'S SPOUSE CALLED, UPDATED WITH PT'S POC AND STATUS. ALL QUESTIONS ANSWERED.
[2018-12-16 14:32] VITALS: BP_SYST 139
[2018-12-16 16:20] VITALS: BP_SYST 138
--- NOTE | 2018-12-16 18:23 | NUR ---
CLOSING NOTES, PT HAS BEEN STABLE, NO SOB, NO DISTRESS NOTED THE WHOLE SHIFT. BP WAS HIGH AT THE START OF THE SHIFT AND WAS GIVEN BP MEDS. PT ON SCHEDULED PAIN MEDICATION. PT STATED THAT HE DOES NOT WANT TO TAKE THE CLONIDINE IT MAKES HIM SICK. PT'S SPOUSE AT BEDSIDE. WILL ENDORSE TO NIGHT NURSE.
--- NOTE | 2018-12-16 19:30 | NUR ---
OPENING NOTE RECEIVED CARE OF PT. PT SITTING UP IN BED, DENIES ANY NEEDS AT THIS TIME. IV IS SALINE LOCKED. NO SIGNS OF ACUTE DISTRESS, BREATHING IS UNLABORED TO ROOM AIR. SAFETY PRECAUTIONS IN PLACE: BED IN LOWEST POSITION, CALL LIGHT WITH PT, SIDE RAILS UPX3, BED ALARM ON. WILL MONITOR.
[2018-12-16 20:00] VITALS: BP_SYST 140
[2018-12-16] MEDS: ALPRAZolam 0.25 MG TABLET PO SCH (20:06)
--- NOTE | 2018-12-16 20:06 | NUR ---
SCHEDULED MEDICATIONS/NEW LINEN AND GOWN PT ADMINISTERED SCHEDULED MEDICATIONS. MEDICATIONS AND POTENTIAL SIDE EFFECTS EXPLAINED. PT VERBALIZED UNDERSTANDING. PT PROVIDED WITH NEW LINEN AND A NEW GOWN PER REQUEST. ENCOURAGED PT TO CALL FOR ASSISTANCE. SAFETY PRECAUTIONS IN PLACE. WILL MONITOR.
--- NOTE | 2018-12-16 22:01 | NUR ---
SCHEDULED PERCOCET ADMINISTERED PERCOCET 10 MG-325 MG 1 TAB PO ADMINISTERED SCHEDULED. MEDICATION AND POTENTIAL SIDE EFFECTS EXPLAINED. PT ENCOURAGED TO CALL FOR ASSISTANCE. SAFETY PRECAUTIONS IN PLACE. WILL MONITOR.
--- NOTE | 2018-12-17 00:05 | NUR ---
RN ROUNDS PT SITTING UP IN BED, LOOKING AT HIS CELL PHONE. PT APPEARS TO BE COMFORTABLE, NO SIGNS OF ACUTE DISTRESS NOTED. BREATHING IS UNLABORED TO ROOM AIR. PROVIDED PT WITH MORE WATER PER REQUEST. ENCOURAGED PT TO CALL FOR ASSISTANCE. SAFETY PRECAUTIONS OBSERVED. WILL MONITOR.
--- NOTE | 2018-12-17 02:00 | NUR ---
RESTING PT RESTING IN BED WATCHING TELEVISION. NO ACUTE DISTRESS NOTED, BREATHING UNLABORED TO ROOM AIR. IV IS SALINE LOCKED. PT ENCOURAGED TO CALL FOR ASSISTANCE. SAFETY PRECAUTIONS IN PLACE. WILL MONITOR.
[2018-12-17 02:56] VITALS: BP_SYST 130
--- NOTE | 2018-12-17 04:15 | NUR ---
ROUNDS PT RESTING IN BED WITH EYES CLOSED. VISIBLE SYMMETRICAL RISE AND FALL OF CHEST TO ROOM AIR. SKIN IS WARM AND DRY TO TOUCH. PT APPEARS COMFORTABLE, NO S/S OF DISTRESS. SAFETY PRECAUTIONS OBSERVED. WILL MONITOR.
[2018-12-17] MEDS: OXYCODONE/ACETAMINOPHEN *10*mg/325 mg TABLET GT SCH ×4 (04:54→22:11)
--- NOTE | 2018-12-17 05:02 | NUR ---
SCHEDULED PERCOCET ADMINISTERED PERCOCET 10 MG-325 MG 1 TAB PO ADMINISTERED SCHEDULED. MEDICATION AND POTENTIAL SIDE EFFECTS EXPLAINED. PT VERBALIZED UNDERSTANDING. PT ENCOURAGED TO CALL FOR ASSISTANCE. SAFETY PRECAUTIONS IN PLACE. WILL MONITOR.
--- NOTE | 2018-12-17 06:29 | NUR ---
CLOSING NOTE ALL NEEDS MET THROUGHOUT SHIFT. SAFETY MAINTAINED. WILL ENDORSE CARE TO DAY SHIFT RN.
[2018-12-17 06:36] LABS: CALCIUM 9.5 mg/dL (8.4-11.0); CREATININE 1.01 mg/dL (0.55-1.30); POTASSIUM 4.1 mmol/L (3.5-5.1)
[2018-12-17 07:36] LABS: HEMATOCRIT 30.2 % (36-54); HEMOGLOBIN 9.8 g/dL (14.0-18.0); MEAN CORPUSCULAR HEMOGLOBIN 29 pg (27-31); MEAN CORPUSCULAR HGB CONC 33 % (32-36); MEAN CORPUSCULAR VOLUME 90 fL (79.0-98.0); PLATELET COUNT (AUTO) 286 K/uL (130-430); RED BLOOD CELL COUNT(AUTO) 3.37 MIL/uL (4.2-6.2); RED CELL DISTRIBUTION WIDTH 15.3 % (9.0-15.0)
[2018-12-17 07:37] LABS: BASOPHILS # (AUTO) 0.1 K/uL (0.0-0.2); EOSINOPHILS # (AUTO) 1.5 K/uL (0.0-0.4); LYMPHOCYTES # (AUTO) 1.8 K/uL (1.0-5.5); LYMPHOCYTES % (AUTO) 25.2 % (20.5-51.5); MONOCYTES # (AUTO) 0.7 K/uL (0.0-1.0); MONOCYTES % (AUTO) 9.7 % (1.7-9.3); NEUTROPHILS % (AUTO) 43.1 % (40.0-70.0)
[2018-12-17 07:48] VITALS: BP_SYST 176
--- NOTE | 2018-12-17 08:13 | NUR ---
OPENING NOTES, RECIEVED PT IN BED, NO C/O PAIN, NO SOB, PT'S VITALS WNL, NO FEVER. PT IS AAOX3, SAFETY PRECAUTION IN PLACE. CALL LIGHT IN REACH. BED IN LOW POSITION. BED ALARM ON. ENCOURAGED TO CALL FOR ASSIST AND ANY CONCERNS. WILL CONT TO MONITOR.
[2018-12-17] MEDS: DOCUSATE SODIUM 100 MG CAPSULE PO SCH ×2 (08:56→20:15)
[2018-12-17] MEDS: CARVEDILOL 25 MG TABLET (COREG) PO SCH ×2 (08:57→17:30)
[2018-12-17] MEDS: LOSARTAN POTASSIUM 50 MG TABLET (COZAAR) PO SCH ×2 (08:58→20:15)
[2018-12-17] MEDS: FAMOTIDINE 20 MG TABLET PO SCH ×2 (08:58→20:15)
[2018-12-17] MEDS: RIVAROXABAN 10 MG TABLET PO SCH (08:59)
[2018-12-17] MEDS: MORPHINE SULFATE 30 MG Immediate Release TABLET PO SCH ×2 (08:59→20:14)
[2018-12-17] MEDS: cloNIDine HCL 0.1 MG TABLET PO SCH ×3 (09:00→20:14)
--- NOTE | 2018-12-17 09:53 | NUR ---
pt assisted to bedside commode. pt had a large bm.
[2018-12-17 12:02] VITALS: BP_SYST 133
[2018-12-17 16:21] VITALS: BP_SYST 161
--- NOTE | 2018-12-17 16:31 | NUR ---
PT C/O LEFT KNEE PAIN, GIVEN PAIN MEDS FOR PAIN OF 6/10. WILL CONT TO MONITOR.
--- NOTE | 2018-12-17 17:03 | NUR ---
PT'S HERE, UPDATED HER WITH PT'S ACTIVITY TODAY.
--- NOTE | 2018-12-17 19:26 | NUR ---
closing notes, pt has been stable, pt did some upper body exercise with the trapeze, pt assisted from bed to bs commode and chair. pt and his spoke with dr mccoy. endorsed to night rn that said just document that pt refuses clonidine.
--- NOTE | 2018-12-17 19:30 | NUR ---
OPENING NOTE RECEIVED CARE OF PT. PT SITTING UP IN BED, AAOX4, WITH AT BEDSIDE. PT MADE AWARE OF THE POC, NO S/S OF ACUTE DISTRESS NOTED. BREATHING IS UNLABORED TO ROOM AIR. IV IS SALINE LOCKED. PT ENCOURAGED TO CALL FOR ASSISTANCE. SAFETY PRECAUTIONS OBSERVED: BED IN LOWEST POSITION, CALL LIGHT WITH PT, SIDE RAILS UP X3, BED ALARM ON. WILL MONITOR.
[2018-12-17 20:00] VITALS: BP_SYST 158
[2018-12-17] MEDS: ALPRAZolam 0.25 MG TABLET PO SCH (20:14)
--- NOTE | 2018-12-17 20:14 | NUR ---
SCHEDULED MEDICATION PASS SCHEDULED MEDICATIONS ADMINISTERED. MEDICATIONS AND POTENTIAL SIDE EFFECTS EXPLAINED. PT VERBALIZED UNDERSTANDING. NO S/S OF DISTRESS, BREATHING IS UNLABORED TO ROOM AIR. PT ENCOURAGED TO CALL FOR ASSISTANCE. SAFETY PRECAUTIONS IN PLACE. WILL MONITOR.
--- NOTE | 2018-12-17 22:11 | NUR ---
SCHEDULED PERCOCET PERCOCET 10MG-325MG TAB ADMINISTERED SCHEDULED. PT EDUCATED REGARDING MEDICATION AND POTENTIAL SIDE EFFECTS. PT VERBALIZED UNDERSTANDING. NO S/S OF ACUTE DISTRESS NOTED. IV IS SALINE LOCKED. PT PROVIDED WITH ADDITIONAL BLANKET PER REQUEST. SAFETY PRECAUTIONS OBSERVED. WILL MONITOR.
--- NOTE | 2018-12-18 00:05 | NUR ---
RN ROUNDS PT AWAKE, SITTING UP IN BED AND WATCHING TELEVISION. NO S/S OF DISTRESS, NO SOB, DENIES DISCOMFORT AT THIS TIME. PT STATED THAT HE FEELS ANXIOUS. ENCOURAGE PT TO EXPRESS FEELINGS. PT REPOSITIONED AND PROVIDED WITH WATER. PT INSTRUCTED TO CALL FOR ANY FURTHER ASSISTANCE. SAFETY PRECAUTIONS IN PLACE. WILL MONITOR.
--- NOTE | 2018-12-18 01:50 | NUR ---
ATTEMPTED TO GET OUT OF BED PT CONFUSED UPON WAKING UP, ATTEMPTED TO GET OUT OF BED. PT REORIENTED TO HOSPITAL SETTING. PT REPOSITIONED IN BED FOR COMFORT. POC DISCUSSED WITH PT. BREATHING IS UNLABORED TO ROOM AIR, NO S/S OF ACUTE DISTRESS, NO SOB. PT ENCOURAGED TO CALL FOR FURTHER ASSISTANCE. SAFETY PRECAUTIONS IN PLACE: BED IN LOWEST POSITION, CALL LIGHT WITH PT, SIDE RAILS UP X3, PERSONAL ITEMS WITHIN REACH, BED ALARM ON. WILL CONTINUE TO MONITOR.
[2018-12-18 03:09] VITALS: BP_SYST 155
--- NOTE | 2018-12-18 03:22 | NUR ---
SLEEPING PT SLEEPING, VISIBLE SYMMETRICAL RISE AND FALL OF CHEST TO ROOM AIR. SKIN IS WARM AND DRY TO TOUCH. NO S/S OF DISTRESS NOTED. SAFETY PRECAUTIONS MAINTAINED. WILL MONITOR.
[2018-12-18] MEDS: OXYCODONE/ACETAMINOPHEN *10*mg/325 mg TABLET GT SCH (04:05)
--- NOTE | 2018-12-18 04:10 | NUR ---
POCKET KNIFE/TOOL SENT WITH SECURITY POCKET KNIFE AND A POCKET TOOL FOUND IN PT'S BED. SECURITY CALLED TO KEEP ITEMS. PT MADE AWARE. PT STATED THEY WERE NOT HIS. PT EDUCATED REGARDING SAFETY AND NEED TO SEND ITEMS WITH SECURITY. PT VERBALIZED UNDERSTANDING. WILL MONITOR.
--- NOTE | 2018-12-18 04:15 | NUR ---
SCHEDULED PERCOCET ADMINISTERED PT EDUCATED REGARDING MEDICATION AND POTENTIAL SIDE EFFECTS. SAFETY PRECAUTIONS MAINTAINED. WILL MONITOR.
--- NOTE | 2018-12-18 05:12 | NUR ---
SLEEPING PT SLEEPING, VISIBLE SYMMETRICAL RISE AND FALL OF CHEST TO ROOM AIR. SKIN IS WARM AND DRY TO TOUCH. NO S/S OF ACUTE DISTRESS, PT APPEARS TO BE COMFORTABLE. SAFETY PRECAUTIONS ARE IN PLACE. WILL MONITOR.
--- NOTE | 2018-12-18 06:25 | NUR ---
CLOSING NOTE PT SLEEPING IN BED, EVEN RISE AND FALL OF CHEST BILATERALLY, SKIN IS WARM AND DRY TO TOUCH. NO S/S OF DISTRESS. IV IS SALINE LOCKED, NO SIGN OF INFILTRATION AT IV SITE. SAFETY PRECAUTIONS IN PLACE. ALL NEEDS MET DURING SHIFT. WILL CONTINUE TO MONITOR UNTIL PATIENT CARE IS ENDORSED TO ONCOMING DAY SHIFT RN.
--- NOTE | 2018-12-18 07:30 | NUR ---
Opening Note received report from contracts attorney RN, pt resting in bed, respirations even and unlabored, no acute distress noted, pt educated on use of call light and asked to call for assistance, pt verbalized understanding, call light in reach, bed in low and locked position, bed alarm on, fall and aspiration precautions in place.
[2018-12-18 08:00] VITALS: BP_SYST 180
[2018-12-18] MEDS ORDERED: COMMUNICATION ORDER XX ONE (08:00)
[2018-12-18] MEDS: MORPHINE SULFATE 30 MG Immediate Release TABLET PO SCH (08:05)
[2018-12-18] MEDS: FAMOTIDINE 20 MG TABLET PO SCH ×2 (08:06→20:30)
[2018-12-18] MEDS: DOCUSATE SODIUM 100 MG CAPSULE PO SCH ×2 (08:06→20:30)
[2018-12-18] MEDS: CARVEDILOL 25 MG TABLET (COREG) PO SCH ×2 (08:06→17:31)
[2018-12-18] MEDS: LOSARTAN POTASSIUM 50 MG TABLET (COZAAR) PO SCH ×2 (08:06→20:31)
[2018-12-18] MEDS: RIVAROXABAN 10 MG TABLET PO SCH (08:07)
[2018-12-18] MEDS: cloNIDine HCL 0.1 MG TABLET PO SCH ×3 (08:13→20:32)
--- NOTE | 2018-12-18 08:14 | NUR ---
Medication pt educated on use and side effects of clonidine, pt refusing clonidine, no additional needs at this time, fall and aspiration precautions in place.
--- NOTE | 2018-12-18 08:57 | NUR ---
Discharge Planning: DCP faxed pt referral to [facility] (f [phone] p [phone]) DCP to follow up Addendum: 12/18/18 at 1440 by Mariaa Felder DP [facility] (f [phone] p [phone]) declined, DCP faxed referral to [facility] p [phone]) DCP to follow up Addendum: 12/18/18 at 1655 by Mariaa Felder DP DCP faxed to [facility] (f [phone] p [phone]) accepted rm 4A, DCP recieved acceptance and order late patient packet taken to nurse station partially complete no ambulance arranged. DCP will make nurse aware.
--- NOTE | 2018-12-18 09:45 | NUR ---
Physical Therapy physical therapy at bedside working with patient, patient tolerating well, no acute distress noted.
[2018-12-18] MEDS: OXYCODONE/ACETAMINOPHEN *10*mg/325 mg TABLET PO SCH ×2 (10:07→15:50)
--- NOTE | 2018-12-18 11:49 | NUR ---
RN Rounds pt resting in bed, pt reports pain is controlled, no acute distress noted, fall and aspiration precautions in place.
--- NOTE | 2018-12-18 11:49 | NUR ---
SHAUN JUSTICE SPOKE WITH PATIENT'S LYLA [phone] WHO STATES THAT SHE NEEDED TO REORIENT THE PATIENT REGARDING HIS REASON FOR ADMISSION AND NEED FOR PHYSICAL THERAPY. ALSO ASKED FOR SEVERAL SNF AVAILABLE WITH THEIR INSURANCE AND WAS GIVEN NAMES OF SNF'S CONTRACTED WITH YASHIRA RANKIN. SHE WILL RESEARCH THEM AND CALL US BACK WITH HER PREFERENCES. Addendum: 12/18/18 at 1513 by Urszula Emerson RN IS AGREEABLE TO AND PREFERS [facility], BUT THAT [facility] AND [facility] ARE ACCEPTABLE AND SHE WILL BE HAPPY WITH ANY CHOICE.
[2018-12-18 12:43] VITALS: BP_SYST 166
--- NOTE | 2018-12-18 13:21 | NUR ---
RN Rounds pt resting in bed, no acute distress noted, respirations even and unlabored, no additional needs at this time, fall and aspiration precautions in place.
--- NOTE | 2018-12-18 14:23 | NUR ---
Spoke with MD Spoke with Dr. Luna, informed him of pts current BP 177/89, HR 76, informed him that pt refused catapres, per MD he will be in to see the pt, no new orders.
--- NOTE | 2018-12-18 14:56 | NUR ---
Bed bath pt received bed bath with assistance from HEDIS ANALYST, new gown provided and linen changed, pt tolerated well, pt resting in bed, fall and aspiration precautions in place.
--- NOTE | 2018-12-18 15:44 | NUR ---
Medication Education pt educated on use and side effects of catapres, pt educated on importance of medication for BP control and educated on risks associated with increased BP, pt verbalized understanding, pt refusing catapres, Dr. Luna aware.
--- NOTE | 2018-12-18 16:08 | NUR ---
DC PLANNING Discussed dc planning w Dr Luna in nsg station along w TAYE Seaman. States plan for dc to SNF today. Spoke w pt @ bedside & informed of plan for dc to [facility] today if get auth, states is agreeable w plan. Pt was speaking w on phone & informed her. Updated pt's nurse that SNF waiting for auth.
--- NOTE | 2018-12-18 16:10 | NUR ---
Rounds Dr. Luna at bedside speaking with pt, educated pt about importance of BP medication compliance, pt verbalized understanding. Addendum: 12/18/18 at 1619 by Zoila Bolivar RN aware of current BP 182/86, to put in new orders.
[2018-12-18 16:30] VITALS: BP_SYST 182
[2018-12-18] MEDS ORDERED: hydrALAZINE HCL 20 MG/ML VIAL IVP ONE (17:00)
[2018-12-18] MEDS ORDERED: hydrALAZINE HCL 25 MG TABLET PO ONE (17:00)
--- NOTE | 2018-12-18 17:35 | NUR ---
Medication pt educated on medication use and side effects, pt verbalized understanding, tolerated medication administration well, no acute distress noted.
[2018-12-18 18:50] VITALS: BP_SYST 143
--- NOTE | 2018-12-18 18:55 | NUR ---
Spoke with MD spoke with Dr. Luna, new medication orders received.
--- NOTE | 2018-12-18 19:21 | NUR ---
Closing Note beside SBAR report given to night supervisor RN, pt resting in bed, no acute distress noted, pt aware of transfer tonight to [facility], pt agreeable, pt educted on use of call light and asked to call for assistance, pt verbalized understanding, call light in reach, bed in low and locked position, bed alarm on, fall and aspiration precautions in place, care endorsed.
--- NOTE | 2018-12-18 19:22 | NUR ---
TRANSPORT/DISCHARGE SPOKE WITH [facility] SPIKE MAKER DIRECTOR PER [facility] TO SEND PT OUT TONIGHT USING [facility] DUE TO NO AUTH RECIEVED IN AM.
--- NOTE | 2018-12-18 19:22 | NUR ---
TRANSPORT SPOKE WITH KALEB AT [facility] TRANSPORT IS SET UP FOR 2100
[2018-12-18] MEDS ORDERED: OXYCODONE/ACETAMINOPHEN *10*mg/325 mg TABLET PO SCH ×2 (20:00)
[2018-12-18] MEDS ORDERED: OXYCODONE/ACETAMINOPHEN *10*mg/325 mg TABLET ONE (20:23)
[2018-12-18] MEDS: ALPRAZolam 0.25 MG TABLET PO SCH (20:28)
[2018-12-18 20:38] VITALS: BP_SYST 130
--- NOTE | 2018-12-18 20:45 | NUR ---
REPORT GIVEN TO JANY SHEIKH [facility] @2045 PT GOING TO ROOM 4A
[2018-12-18] MEDS ORDERED: hydrALAZINE HCL 25 MG TABLET PO SCH (21:00)
--- NOTE | 2018-12-18 21:05 | NUR ---
DISCHARGED [facility] 1 AMBULANCE ARRIVED AT 2145 PT REPORT GIVEN TO DEJUAN COPE. PT TRANSFERRED VIA GURNEY. PT AOX3, RESTING IN BED COMFORTABLY. VITAL SIGNS WNL. CHEST RISE EVEN AND UNLABORED. NO SOB NOTED. NO DISTRESS NOTED. ALL NEEDS MET. SCHEDULED MEDICATIONS ADMINISTERED ORDERED. PT REPORT GIVEN TO NURSE JANY FROM [facility]. PT TO BE TRANSFERRED TO [facility]. PT'S AWARE. PT CARE WILL BE CONTINUED AT [facility].
--- NOTE | 2018-12-18 21:18 | NUR ---
DISCHARGED AT 2104
== END 2018-12-18 21:05 | DRG 917 ==
LOC: SED 14:19 → STU 16:31 → SMU 12-18 17:37
PROVIDERS: ADMIT Family Medicine; ATTEND Family Medicine
DX: T40.601A Poisoning by unspecified narcotics, accidental (unintentional), initial encounter (principal); G92 Toxic encephalopathy; I10 Essential (primary) hypertension; M17.0 Bilateral primary osteoarthritis of knee; Z96.652 Presence of left artificial knee joint; M17.11 Unilateral primary osteoarthritis, right knee; G89.29 Other chronic pain; Z79.899 Other long term (current) drug therapy; Y92.89 Other specified places as the place of occurrence of the external cause
CPT/HCPCS: 36415; 70450-TC; 71045; 73564; 80048; 80053; 80307; 81000-TC; 82140-TC; 82550-TC; 83605; 83880; 84484; 85025; 85610-TC; 85730-TC; 86140; 87040-TC; 87081; 93005; 96372; 97110-GP; 97116-GP; 97530-GP; 99285; G0378; G0482; J0360; J1885; J2274

== ENCOUNTER 2018-12-22 11:41 | Emergency (ER) | payer OTHER ==
[~2018-12-22] VITALS: Ht 172.7 cm; Wt 90.7 kg
[~2018-12-22 11:41] MED LIST changes: -CAT.1 PO; -CAT2PAT TD; +PERC10 GT; -PERC10 PO
[2018-12-22 11:44] VITALS: BP_SYST 160
[2018-12-22 13:00] LABS: HEMATOCRIT 34.5 % (36-54); HEMOGLOBIN 11.1 g/dL (14.0-18.0); LYMPHOCYTES % (AUTO) 21.6 % (20.5-51.5); MEAN CORPUSCULAR HEMOGLOBIN 29 pg (27-31); MEAN CORPUSCULAR HGB CONC 32 % (32-36); MEAN CORPUSCULAR VOLUME 91 fL (79.0-98.0); NEUTROPHILS % (AUTO) 58.2 % (40.0-70.0); PLATELET COUNT (AUTO) 315 K/uL (130-430); RED BLOOD CELL COUNT(AUTO) 3.79 MIL/uL (4.2-6.2); RED CELL DISTRIBUTION WIDTH 15.7 % (9.0-15.0); WHITE BLOOD COUNT (AUTO) 11.3 K/uL (4.8-10.8)
[2018-12-22 13:01] LABS: ANION GAP 2 (5-15); BASOPHILS # (AUTO) 0.1 K/uL (0.0-0.2); BASOPHILS % (AUTO) 0.8 % (0.0-2.0); CALCIUM 9.2 mg/dL (8.4-11.0); CHLORIDE 102 mmol/L (98-107); CREATININE 1.03 mg/dL (0.55-1.30); EOSINOPHILS # (AUTO) 1.2 K/uL (0.0-0.4); EOSINOPHILS % (AUTO) 10.3 % (0.0-4.0); GLUCOSE 101 mg/dL (70-99); LYMPHOCYTES # (AUTO) 2.4 K/uL (1.0-5.5); MONOCYTES % (AUTO) 9.1 % (1.7-9.3); NEUTROPHILS # (AUTO) 6.6 K/uL (1.8-7.7); SODIUM SERUM 135 mmol/L (136-145); UREA NITROGEN, BLOOD 16 mg/dL (8-21)
[2018-12-22 13:05] LABS: GFR AFRICAN AMERICAN 92 mL/min (>90)
[2018-12-22 13:06] LABS: ALANINE AMINOTRANSFERASE 47 U/L (12-78); ALBUMIN 3.5 g/dL (3.4-4.8); ASPARTATE AMINOTRANSFERASE 41 U/L (10-37); TOTAL BILIRUBIN 0.4 mg/dL (0.0-1.0)
[2018-12-22 13:13] LABS: ALCOHOL, BLOOD < 3 mg/dL (<10)
[2018-12-22 14:26] LABS: BILIRUBIN,URINE NEGATIVE (NEGATIVE); BLOOD, URINE NEGATIVE (NEGATIVE); CLARITY/URINE CLEAR (CLEAR); COLOR,URINE YELLOW (YELLOW); GLUCOSE,URINE NEGATIVE (NEGATIVE); KETONES,URINE NEGATIVE (NEGATIVE); LEUKOCYTE ESTERASE ,URINE NEGATIVE (NEGATIVE); NITRITE, URINE NEGATIVE (NEGATIVE); PH,URINE 5.5 (5.0-8.0); PROTEIN URINE NEGATIVE (NEGATIVE); UROBILINOGEN,URINE 0.2 (0.2-1.0)
[2018-12-22 14:43] LABS: BARBITURATE, URINE NEGATIVE (NEG <=200); BENZODIAZEPINE, URINE POSITIVE (NEG <=150); METHAMPHETAMINES SCREEN,URINE NEGATIVE (NEG <=500); URINE AMPHETAMINE NEGATIVE (NEG <=500); URINE METHADONE NNN (NEG <=200)
[2018-12-22 14:44] LABS: CANNABINOID, URINE NEGATIVE (NEG <=50); COCAINE, URINE NEGATIVE (NEG <=150); OPIATE, URINE POSITIVE (NEG <=100); PHENCYCLIDINE SCREEN,URINE NEGATIVE (NEG <=25); UR TRICYCLIC ANTIDEPRESSANTS NEGATIVE (NEG <=300); URINE OXYCODONE SCREEN POSITIVE (NEG <=100); URINE PROPOXYPHENE SCREEN NEGATIVE (NEG <=300)
[2018-12-22 16:54] VITALS: BP_SYST 152
== END 2018-12-22 16:54 | disposition home or self-care (01) ==
LOC: SED 11:41
DX: T42.4X1A Poisoning by benzodiazepines, accidental (unintentional), initial encounter (principal); T40.601A Poisoning by unspecified narcotics, accidental (unintentional), initial encounter; I10 Essential (primary) hypertension; Z79.899 Other long term (current) drug therapy; Y92.89 Other specified places as the place of occurrence of the external cause
CPT/HCPCS: 36415; 80053; 80307; 81003; 99283; 85025; G0482

== ENCOUNTER 2019-01-02 23:35 | Inpatient (IN) | payer OTHER ==
[~2019-01-02] VITALS: Ht 175.3 cm; Wt 93.4 kg
[~2019-01-02 23:35] MED LIST changes: -PERC10 GT; +PERC10 PO
[2019-01-02 23:55] VITALS: BP_SYST 169
[2019-01-03] MEDS ORDERED: MORPHINE 4 MG/ML INJ. SYRINGE IVP ONE
[2019-01-03] MEDS ORDERED: NACL 0.9% 1,000 ML IV ONE
[2019-01-03 00:28] LABS: HEMATOCRIT 33.2 % (36-54); HEMOGLOBIN 10.7 g/dL (14.0-18.0); MEAN CORPUSCULAR HEMOGLOBIN 30 pg (27-31); MEAN CORPUSCULAR HGB CONC 32 % (32-36); MEAN CORPUSCULAR VOLUME 91 fL (79.0-98.0); NEUTROPHILS % (AUTO) 78.7 % (40.0-70.0); PLATELET COUNT (AUTO) 278 K/uL (130-430); RED BLOOD CELL COUNT(AUTO) 3.63 MIL/uL (4.2-6.2); RED CELL DISTRIBUTION WIDTH 17.8 % (9.0-15.0); WHITE BLOOD COUNT (AUTO) 13.2 K/uL (4.8-10.8)
[2019-01-03 00:29] LABS: BASOPHILS # (AUTO) 0.1 K/uL (0.0-0.2); BASOPHILS % (AUTO) 0.8 % (0.0-2.0); EOSINOPHILS # (AUTO) 0.3 K/uL (0.0-0.4); LYMPHOCYTES # (AUTO) 1.2 K/uL (1.0-5.5); LYMPHOCYTES % (AUTO) 9.4 % (20.5-51.5); MONOCYTES # (AUTO) 1.2 K/uL (0.0-1.0); MONOCYTES % (AUTO) 9.1 % (1.7-9.3); NEUTROPHILS # (AUTO) 10.4 K/uL (1.8-7.7)
[2019-01-03 00:37] LABS: CALCIUM 8.5 mg/dL (8.4-11.0); CREATININE 0.85 mg/dL (0.55-1.30); POTASSIUM 3.2 mmol/L (3.5-5.1)
[2019-01-03 00:41] LABS: PROTHROMBIN TIME 10.6 SECS (9.5-12.5)
[2019-01-03 00:54] LABS: ALBUMIN 3.2 g/dL (3.4-4.8); TOTAL BILIRUBIN 0.5 mg/dL (0.0-1.0)
[2019-01-03 01:20] LABS: BILIRUBIN,URINE NEGATIVE (NEGATIVE); CLARITY/URINE CLEAR (CLEAR); COLOR,URINE YELLOW (YELLOW); GLUCOSE,URINE NEGATIVE (NEGATIVE); KETONES,URINE NEGATIVE (NEGATIVE); LEUKOCYTE ESTERASE ,URINE NEGATIVE (NEGATIVE); NITRITE, URINE NEGATIVE (NEGATIVE); PH,URINE 5.5 (5.0-8.0); PROTEIN URINE TRACE (NEGATIVE); UROBILINOGEN,URINE 0.2 (0.2-1.0)
[2019-01-03 01:22] LABS: BLOOD, URINE TRACE (NEGATIVE)
[2019-01-03 01:35] LABS: BACTERIA,URINE FEW /HPF (None Seen); WBC,URINE 0-3 /HPF (0-3)
[2019-01-03] MEDS ORDERED: VANCOMYCIN HCL 1,000 MG in NS 250 ML IV ONE (03:00)
[2019-01-03] MEDS ORDERED: VANCOMYCIN HCL 1000 MG/VIAL IV ONE (03:08)
[2019-01-03] MEDS ORDERED: MORPHINE 4 MG/ML INJ. SYRINGE IVP PRN (03:30)
[2019-01-03] MEDS ORDERED: POTASSIUM CHLORIDE 20 MEQ TAB.PRT.SR ONE (07:05)
[2019-01-03 08:30] VITALS: BP_SYST 144
[2019-01-03] MEDS: MORPHINE 4 MG/ML INJ. SYRINGE IVP PRN ×3 (10:43→19:48)
[2019-01-03 11:27] VITALS: BP_SYST 147
[2019-01-03] MEDS: VANCOMYCIN HCL 1,250 MG in NS 250 ML IV SCH (14:07)
[2019-01-03] MEDS: CYCLOBENZAPRINE HCL 10 MG TABLET (FLEXERIL) PO SCH ×2 (15:37→20:49)
[2019-01-03 16:00] VITALS: BP_SYST 170
[2019-01-03] MEDS ORDERED: cloNIDine HCL 0.1 MG TABLET PO PRN (18:15)
[2019-01-03 20:43] VITALS: BP_SYST 163
[2019-01-03] MEDS: CARVEDILOL 25 MG TABLET (COREG) PO SCH (20:49)
[2019-01-03] MEDS: FAMOTIDINE 20 MG TABLET PO SCH (20:49)
[2019-01-03] MEDS: LOSARTAN POTASSIUM 50 MG TABLET (COZAAR) PO SCH (20:49)
[2019-01-03] MEDS: ALPRAZolam 0.25 MG TABLET PO SCH (20:50)
[2019-01-03] MEDS: MORPHINE SULFATE 30 MG Immediate Release TABLET PO SCH (20:50)
[2019-01-04] VITALS (7 sets, daily range): BP systolic 160–173
[2019-01-04] MEDS: VANCOMYCIN HCL 1,250 MG in NS 250 ML IV SCH ×2 (00:13→12:15)
[2019-01-04] MEDS: MORPHINE 4 MG/ML INJ. SYRINGE IVP PRN ×2 (04:25→11:05)
[2019-01-04 07:58] LABS: CREATININE 0.74 mg/dL (0.55-1.30); POTASSIUM 3.4 mmol/L (3.5-5.1)
[2019-01-04 08:01] LABS: CALCIUM 8.4 mg/dL (8.4-11.0); CREATININE 0.69 mg/dL (0.55-1.30); POTASSIUM 3.5 mmol/L (3.5-5.1)
[2019-01-04] MEDS: MORPHINE SULFATE 30 MG Immediate Release TABLET PO SCH ×2 (08:04→20:24)
[2019-01-04] MEDS: FAMOTIDINE 20 MG TABLET PO SCH ×2 (08:04→20:24)
[2019-01-04] MEDS: CARVEDILOL 25 MG TABLET (COREG) PO SCH ×2 (08:05→20:25)
[2019-01-04] MEDS: LOSARTAN POTASSIUM 50 MG TABLET (COZAAR) PO SCH ×2 (08:05→20:25)
[2019-01-04] MEDS: CYCLOBENZAPRINE HCL 10 MG TABLET (FLEXERIL) PO SCH (08:06)
[2019-01-04] MEDS: RIVAROXABAN 10 MG TABLET PO SCH (08:09)
[2019-01-04 08:39] LABS: HEMATOCRIT 30.1 % (36-54); HEMOGLOBIN 9.9 g/dL (14.0-18.0); MEAN CORPUSCULAR HEMOGLOBIN 30 pg (27-31); MEAN CORPUSCULAR HGB CONC 33 % (32-36); MEAN CORPUSCULAR VOLUME 91 fL (79.0-98.0); PLATELET COUNT (AUTO) 260 K/uL (130-430); RED BLOOD CELL COUNT(AUTO) 3.32 MIL/uL (4.2-6.2); RED CELL DISTRIBUTION WIDTH 17.4 % (9.0-15.0); WHITE BLOOD COUNT (AUTO) 9.4 K/uL (4.8-10.8)
[2019-01-04 08:40] LABS: BASOPHILS # (AUTO) 0.1 K/uL (0.0-0.2); BASOPHILS % (AUTO) 0.7 % (0.0-2.0); EOSINOPHILS # (AUTO) 0.7 K/uL (0.0-0.4); EOSINOPHILS % (AUTO) 7.9 % (0.0-4.0); LYMPHOCYTES # (AUTO) 1.2 K/uL (1.0-5.5); LYMPHOCYTES % (AUTO) 12.8 % (20.5-51.5); MONOCYTES # (AUTO) 0.9 K/uL (0.0-1.0); MONOCYTES % (AUTO) 9.7 % (1.7-9.3); NEUTROPHILS # (AUTO) 6.4 K/uL (1.8-7.7); NEUTROPHILS % (AUTO) 68.9 % (40.0-70.0)
[2019-01-04 08:45] LABS: CALCIUM 8.5 mg/dL (8.4-10.2)
[2019-01-04 10:06] LABS: ERYTHROCYTE SEDIMENTATION RATE 77 MM/HR (0-15)
[2019-01-04] MEDS: hydrALAZINE HCL 25 MG TABLET PO SCH ×2 (14:14→21:48)
[2019-01-04] MEDS: OXYCODONE/ACETAMINOPHEN *10*mg/325 mg TABLET PO PRN (17:40)
[2019-01-04] MEDS: ALPRAZolam 0.25 MG TABLET PO SCH (20:24)
[2019-01-05] MEDS: VANCOMYCIN HCL 1,250 MG in NS 250 ML IV SCH (00:04)
[2019-01-05] MEDS: OXYCODONE/ACETAMINOPHEN *10*mg/325 mg TABLET PO PRN ×2 (01:18→11:44)
[2019-01-05 05:18] VITALS: BP_SYST 159
[2019-01-05] MEDS: hydrALAZINE HCL 25 MG TABLET PO SCH ×3 (05:21→21:13)
[2019-01-05 06:14] VITALS: BP_SYST 159
[2019-01-05] MEDS: FAMOTIDINE 20 MG TABLET PO SCH ×2 (08:52→21:13)
[2019-01-05] MEDS: MORPHINE SULFATE 30 MG Immediate Release TABLET PO SCH ×2 (08:53→21:12)
[2019-01-05] MEDS: CARVEDILOL 25 MG TABLET (COREG) PO SCH ×2 (08:57→21:12)
[2019-01-05] MEDS: LOSARTAN POTASSIUM 50 MG TABLET (COZAAR) PO SCH ×2 (08:57→21:12)
[2019-01-05] MEDS: RIVAROXABAN 10 MG TABLET PO SCH (09:00)
[2019-01-05 12:32] VITALS: BP_SYST 148
[2019-01-05] MEDS: VANCOMYCIN HCL 1,000 MG in NS 250 ML IV SCH (13:56)
[2019-01-05] MEDS: oxyCODONE HCL 5 MG TABLET PO PRN (16:07)
[2019-01-05 17:11] VITALS: BP_SYST 157
[2019-01-05 20:00] VITALS: BP_SYST 174
[2019-01-05] MEDS: ALPRAZolam 0.25 MG TABLET PO SCH (21:13)
[2019-01-05 23:35] VITALS: BP_SYST 178
[2019-01-06] MEDS: oxyCODONE HCL 5 MG TABLET PO PRN ×5 (01:20→17:54)
[2019-01-06] MEDS: VANCOMYCIN HCL 1,000 MG in NS 250 ML IV SCH ×2 (01:21→14:09)
[2019-01-06 03:01] VITALS: BP_SYST 161
[2019-01-06] MEDS: hydrALAZINE HCL 25 MG TABLET PO SCH ×3 (05:13→22:14)
[2019-01-06] MEDS: LOSARTAN POTASSIUM 50 MG TABLET (COZAAR) PO SCH ×2 (08:35→20:17)
[2019-01-06] MEDS: MORPHINE SULFATE 30 MG Immediate Release TABLET PO SCH ×2 (08:36→20:16)
[2019-01-06] MEDS: CARVEDILOL 25 MG TABLET (COREG) PO SCH ×2 (08:37→20:19)
[2019-01-06] MEDS: FAMOTIDINE 20 MG TABLET PO SCH ×2 (08:37→20:15)
[2019-01-06] MEDS: RIVAROXABAN 10 MG TABLET PO SCH (08:39)
[2019-01-06 11:22] VITALS: BP_SYST 163
[2019-01-06 16:29] VITALS: BP_SYST 151
[2019-01-06 19:15] VITALS: BP_SYST 147
[2019-01-06] MEDS: ALPRAZolam 0.25 MG TABLET PO SCH (20:15)
[2019-01-06] MEDS: CEFEPIME 1 GM in D5W 50 ML IV SCH (20:15)
[2019-01-07 00:47] VITALS: BP_SYST 143
[2019-01-07] MEDS: VANCOMYCIN HCL 1,000 MG in NS 250 ML IV SCH (01:35)
[2019-01-07] MEDS: oxyCODONE HCL 5 MG TABLET PO PRN ×5 (03:10→18:25)
[2019-01-07] MEDS: hydrALAZINE HCL 25 MG TABLET PO SCH ×3 (05:51→21:35)
[2019-01-07 07:32] LABS: CREATININE 0.78 mg/dL (0.55-1.30); POTASSIUM 3.4 mmol/L (3.5-5.1)
[2019-01-07 07:40] VITALS: BP_SYST 164
[2019-01-07 08:27] LABS: CALCIUM 9.2 mg/dL (8.4-10.2)
[2019-01-07] MEDS: FAMOTIDINE 20 MG TABLET PO SCH ×2 (08:35→20:49)
[2019-01-07] MEDS: CARVEDILOL 25 MG TABLET (COREG) PO SCH ×2 (08:36→20:53)
[2019-01-07] MEDS: LOSARTAN POTASSIUM 50 MG TABLET (COZAAR) PO SCH ×2 (08:36→20:52)
[2019-01-07] MEDS: MORPHINE SULFATE 30 MG Immediate Release TABLET PO SCH ×2 (08:37→20:50)
[2019-01-07] MEDS: RIVAROXABAN 10 MG TABLET PO SCH (08:39)
[2019-01-07] MEDS: CEFEPIME 1 GM in D5W 50 ML IV SCH ×2 (08:40→20:49)
[2019-01-07] MEDS ORDERED: ONDANSETRON HCL 4 MG/2 ML VIAL ONE (09:47)
[2019-01-07 11:24] VITALS: BP_SYST 140
[2019-01-07] MEDS: VANCOMYCIN HCL 1,250 MG in NS 250 ML IV SCH (15:24)
[2019-01-07 15:30] VITALS: BP_SYST 124
[2019-01-07 20:00] VITALS: BP_SYST 156
[2019-01-07] MEDS: LIDOCAINE PATCH 5% 1 EA TP SCH (20:49)
[2019-01-07] MEDS: ALPRAZolam 0.25 MG TABLET PO SCH (20:49)
[2019-01-07] MEDS ORDERED: LIDOCAINE PATCH 5% 1 EA TP ONE (20:57)
[2019-01-08 00:38] VITALS: BP_SYST 166
[2019-01-08] MEDS: oxyCODONE HCL 5 MG TABLET PO PRN ×5 (02:18→23:44)
[2019-01-08] MEDS: VANCOMYCIN HCL 1,250 MG in NS 250 ML IV SCH ×2 (02:21→16:00)
[2019-01-08] MEDS: hydrALAZINE HCL 25 MG TABLET PO SCH ×3 (06:34→22:25)
[2019-01-08 08:30] VITALS: BP_SYST 147
[2019-01-08] MEDS: LOSARTAN POTASSIUM 50 MG TABLET (COZAAR) PO SCH ×2 (08:34→20:34)
[2019-01-08] MEDS: CARVEDILOL 25 MG TABLET (COREG) PO SCH ×2 (08:35→20:33)
[2019-01-08] MEDS: FAMOTIDINE 20 MG TABLET PO SCH ×2 (08:35→20:35)
[2019-01-08] MEDS: MORPHINE SULFATE 30 MG Immediate Release TABLET PO SCH ×2 (08:36→20:35)
[2019-01-08] MEDS: CEFEPIME 1 GM in D5W 50 ML IV SCH ×2 (08:36→20:41)
[2019-01-08] MEDS: LIDOCAINE PATCH 5% 1 EA TP SCH (08:37)
[2019-01-08] MEDS: RIVAROXABAN 10 MG TABLET PO SCH (08:46)
[2019-01-08] MEDS: KETOROLAC TROMETHAMINE 15 MG VIAL IVP PRN ×3 (10:40→22:35)
[2019-01-08 11:29] VITALS: BP_SYST 138
[2019-01-08 15:37] VITALS: BP_SYST 146
[2019-01-08 19:50] VITALS: BP_SYST 166
[2019-01-08] MEDS: ALPRAZolam 0.25 MG TABLET PO SCH (20:32)
[2019-01-09 00:11] VITALS: BP_SYST 148
[2019-01-09] MEDS: VANCOMYCIN HCL 1,250 MG in NS 250 ML IV SCH ×2 (03:08→15:35)
[2019-01-09] MEDS: oxyCODONE HCL 5 MG TABLET PO PRN ×2 (04:34→12:14)
[2019-01-09] MEDS: KETOROLAC TROMETHAMINE 15 MG VIAL IVP PRN ×3 (06:50→21:21)
[2019-01-09] MEDS: hydrALAZINE HCL 25 MG TABLET PO SCH ×3 (06:55→21:21)
[2019-01-09 08:00] VITALS: BP_SYST 150
[2019-01-09] MEDS: MORPHINE SULFATE 30 MG Immediate Release TABLET PO SCH ×2 (08:46→20:24)
[2019-01-09] MEDS: RIVAROXABAN 10 MG TABLET PO SCH (08:47)
[2019-01-09] MEDS: LOSARTAN POTASSIUM 50 MG TABLET (COZAAR) PO SCH ×2 (08:47→20:22)
[2019-01-09] MEDS: CARVEDILOL 25 MG TABLET (COREG) PO SCH ×2 (08:48→20:24)
[2019-01-09] MEDS: FAMOTIDINE 20 MG TABLET PO SCH ×2 (08:48→20:22)
[2019-01-09] MEDS: LIDOCAINE PATCH 5% 1 EA TP SCH (08:48)
[2019-01-09] MEDS: CEFEPIME 1 GM in D5W 50 ML IV SCH ×2 (08:48→20:21)
[2019-01-09 12:27] VITALS: BP_SYST 117
[2019-01-09 16:35] VITALS: BP_SYST 114
[2019-01-09 20:00] VITALS: BP_SYST 155
[2019-01-09] MEDS: ALPRAZolam 0.25 MG TABLET PO SCH (20:22)
[2019-01-09 23:09] VITALS: BP_SYST 152
[2019-01-10] MEDS: oxyCODONE HCL 5 MG TABLET PO PRN ×3 (01:08→12:21)
[2019-01-10] MEDS: VANCOMYCIN HCL 1,250 MG in NS 250 ML IV SCH ×2 (02:08→14:24)
[2019-01-10] MEDS: KETOROLAC TROMETHAMINE 15 MG VIAL IVP PRN ×2 (03:53→09:51)
[2019-01-10] MEDS: hydrALAZINE HCL 25 MG TABLET PO SCH ×2 (05:16→14:24)
[2019-01-10 07:37] LABS: CALCIUM 8.9 mg/dL (8.4-11.0); CREATININE 0.79 mg/dL (0.55-1.30); POTASSIUM 3.7 mmol/L (3.5-5.1)
[2019-01-10 07:53] VITALS: BP_SYST 158
[2019-01-10] MEDS: CEFEPIME 1 GM in D5W 50 ML IV SCH (08:53)
[2019-01-10] MEDS: LIDOCAINE PATCH 5% 1 EA TP SCH (08:53)
[2019-01-10] MEDS: LOSARTAN POTASSIUM 50 MG TABLET (COZAAR) PO SCH (08:54)
[2019-01-10] MEDS: CARVEDILOL 25 MG TABLET (COREG) PO SCH (08:54)
[2019-01-10] MEDS: FAMOTIDINE 20 MG TABLET PO SCH (08:55)
[2019-01-10] MEDS: MORPHINE SULFATE 30 MG Immediate Release TABLET PO SCH (08:55)
[2019-01-10] MEDS: RIVAROXABAN 10 MG TABLET PO SCH (09:01)
[2019-01-10 12:00] VITALS: BP_SYST 138
[2019-01-10 14:48] VITALS: BP_SYST 136
== END 2019-01-10 17:00 | disposition home health service (06) | DRG 549 ==
LOC: SED 23:35 → SMU 01-03 03:20
PROVIDERS: ADMIT Family Medicine; ATTEND Family Medicine
DX: M00.9 Pyogenic arthritis, unspecified (principal); L03.116 Cellulitis of left lower limb; F17.200 Nicotine dependence, unspecified, uncomplicated; I10 Essential (primary) hypertension; M19.90 Unspecified osteoarthritis, unspecified site; B96.5 Pseudomonas (aeruginosa) (mallei) (pseudomallei) as the cause of diseases classified elsewhere; Z96.652 Presence of left artificial knee joint; G89.29 Other chronic pain; M54.9 Dorsalgia, unspecified; Z79.899 Other long term (current) drug therapy
CPT/HCPCS: 36415; 71045; 73564; 80048; 80053; 80069; 80202-TC; 81000-TC; 83605; 84484; 85025; 85610-TC; 85651-TC; 85730-TC; 86140; 87040-TC; 87070-TC; 87081; 87086; 87186-TC; 96361; 96365; 96366; 96375; 97110-GP; 97116-GP; 97530-GP; 99285; J0692; J0696; J1885; J2270; J2274; J2405; J3370; J7030; J7050; J7060

== ENCOUNTER 2019-01-18 10:21 | Inpatient (IN) | payer OTHER ==
[~2019-01-18] VITALS: Ht 175.3 cm; Wt 90.7 kg
[2019-01-18 10:21] VITALS: BP_SYST 159
[~2019-01-18 10:21] MED LIST changes: -ALPR1TAB2 PO
[2019-01-18] MEDS ORDERED: CEFEPIME 2 GM in D5W 100 ML IV ONE ×2 (10:45→14:15)
[2019-01-18 11:42] LABS: RED BLOOD CELL COUNT(AUTO) 4.22 MIL/uL (4.2-6.2); WHITE BLOOD COUNT (AUTO) 10.5 K/uL (4.8-10.8)
[2019-01-18 11:43] LABS: BASOPHILS # (AUTO) 0.1 K/uL (0.0-0.2); BASOPHILS % (AUTO) 0.7 % (0.0-2.0); EOSINOPHILS # (AUTO) 0.1 K/uL (0.0-0.4); HEMATOCRIT 37.8 % (36-54); HEMOGLOBIN 12.2 g/dL (14.0-18.0); LYMPHOCYTES # (AUTO) 1.3 K/uL (1.0-5.5); LYMPHOCYTES % (AUTO) 12.2 % (20.5-51.5); MEAN CORPUSCULAR HEMOGLOBIN 29 pg (27-31); MEAN CORPUSCULAR HGB CONC 32 % (32-36); MEAN CORPUSCULAR VOLUME 90 fL (79.0-98.0); MONOCYTES % (AUTO) 9.7 % (1.7-9.3); NEUTROPHILS # (AUTO) 8.1 K/uL (1.8-7.7); NEUTROPHILS % (AUTO) 76.4 % (40.0-70.0); PLATELET COUNT (AUTO) 380 K/uL (130-430); RED CELL DISTRIBUTION WIDTH 16.9 % (9.0-15.0)
[2019-01-18 11:51] LABS: ALBUMIN 3.2 g/dL (3.4-4.8); CALCIUM 9.3 mg/dL (8.4-11.0); CREATININE 0.96 mg/dL (0.55-1.30); POTASSIUM 3.7 mmol/L (3.5-5.1); TOTAL BILIRUBIN 0.3 mg/dL (0.0-1.0)
[2019-01-18 12:02] VITALS: BP_SYST 163
[2019-01-18 12:29] VITALS: BP_SYST 163
[2019-01-18] MEDS ORDERED: oxyCODONE HCL 10 MG TAB.ER.12H PO SCH (13:45)
[2019-01-18] MEDS ORDERED: CARVEDILOL 25 MG TABLET (COREG) PO ONE (13:45)
[2019-01-18] MEDS ORDERED: OXYCODONE/ACETAMINOPHEN *10*mg/325 mg TABLET GT ONE (13:45)
[2019-01-18] MEDS ORDERED: ALPRAZolam 0.25 MG TABLET PO ONE (14:15)
[2019-01-18] MEDS ORDERED: hydrALAZINE HCL 25 MG TABLET PO ONE (14:15)
[2019-01-18] MEDS: CYCLOBENZAPRINE HCL 10 MG TABLET (FLEXERIL) PO SCH ×2 (14:22→21:35)
[2019-01-18] MEDS ORDERED: oxyCODONE HCL 10 MG TAB.ER.12H PO ONE (16:30)
[2019-01-18 16:32] VITALS: BP_SYST 140
[2019-01-18] MEDS: hydrALAZINE HCL 25 MG TABLET PO SCH ×2 (17:47→23:50)
[2019-01-18] MEDS: OXYCODONE/ACETAMINOPHEN *10*mg/325 mg TABLET GT SCH ×2 (17:47→23:51)
[2019-01-18] MEDS ORDERED: ALPRAZolam 0.25 MG TABLET PO SCH (21:00)
[2019-01-18 21:31] VITALS: BP_SYST 147
[2019-01-18] MEDS: FAMOTIDINE 20 MG TABLET PO SCH (21:35)
[2019-01-18] MEDS: ALPRAZolam 0.25 MG TABLET PO SCH (21:35)
[2019-01-18] MEDS: LOSARTAN POTASSIUM 50 MG TABLET (COZAAR) PO SCH (21:36)
[2019-01-18] MEDS: CARVEDILOL 25 MG TABLET (COREG) PO SCH (21:37)
[2019-01-18] MEDS: MORPHINE SULFATE 30 MG Immediate Release TABLET PO SCH (21:39)
[2019-01-19 00:01] VITALS: BP_SYST 139
[2019-01-19 05:05] VITALS: BP_SYST 139
[2019-01-19] MEDS: hydrALAZINE HCL 25 MG TABLET PO SCH ×4 (05:07→23:53)
[2019-01-19] MEDS: OXYCODONE/ACETAMINOPHEN *10*mg/325 mg TABLET GT SCH ×4 (05:08→23:53)
[2019-01-19] MEDS: ALPRAZolam 0.25 MG TABLET PO SCH ×3 (08:25→21:32)
[2019-01-19] MEDS: CYCLOBENZAPRINE HCL 10 MG TABLET (FLEXERIL) PO SCH ×3 (08:26→21:33)
[2019-01-19] MEDS: MORPHINE SULFATE 30 MG Immediate Release TABLET PO SCH ×2 (08:26→21:33)
[2019-01-19] MEDS: LOSARTAN POTASSIUM 50 MG TABLET (COZAAR) PO SCH ×2 (08:27→21:34)
[2019-01-19] MEDS: FAMOTIDINE 20 MG TABLET PO SCH ×2 (08:27→21:32)
[2019-01-19] MEDS: CARVEDILOL 25 MG TABLET (COREG) PO SCH ×2 (08:27→21:34)
[2019-01-19] MEDS: RIVAROXABAN 10 MG TABLET PO SCH (08:30)
[2019-01-19] MEDS: CEFEPIME 2 GM in D5W 100 ML IV SCH ×2 (10:25→21:39)
[2019-01-19 12:58] VITALS: BP_SYST 137
[2019-01-19 17:42] VITALS: BP_SYST 136
[2019-01-19 21:28] VITALS: BP_SYST 141
[2019-01-20 00:01] VITALS: BP_SYST 142
[2019-01-20 05:01] VITALS: BP_SYST 142
[2019-01-20] MEDS: OXYCODONE/ACETAMINOPHEN *10*mg/325 mg TABLET GT SCH ×3 (05:03→17:11)
[2019-01-20] MEDS: hydrALAZINE HCL 25 MG TABLET PO SCH ×3 (05:04→17:08)
[2019-01-20 08:00] VITALS: BP_SYST 113
[2019-01-20] MEDS: MORPHINE SULFATE 30 MG Immediate Release TABLET PO SCH ×2 (08:43→20:41)
[2019-01-20] MEDS: CEFEPIME 2 GM in D5W 100 ML IV SCH ×2 (08:43→20:40)
[2019-01-20] MEDS: CYCLOBENZAPRINE HCL 10 MG TABLET (FLEXERIL) PO SCH ×3 (08:43→20:44)
[2019-01-20] MEDS: ALPRAZolam 0.25 MG TABLET PO SCH ×3 (08:44→20:45)
[2019-01-20] MEDS: CARVEDILOL 25 MG TABLET (COREG) PO SCH ×2 (08:44→20:43)
[2019-01-20] MEDS: FAMOTIDINE 20 MG TABLET PO SCH ×2 (08:44→20:42)
[2019-01-20] MEDS: LOSARTAN POTASSIUM 50 MG TABLET (COZAAR) PO SCH ×2 (08:45→20:43)
[2019-01-20] MEDS: RIVAROXABAN 10 MG TABLET PO SCH (08:50)
[2019-01-20 12:17] VITALS: BP_SYST 140
[2019-01-20 16:50] VITALS: BP_SYST 125
[2019-01-20 20:29] VITALS: BP_SYST 146
[2019-01-21] MEDS: hydrALAZINE HCL 25 MG TABLET PO SCH ×5 (00:04→23:09)
[2019-01-21] MEDS: OXYCODONE/ACETAMINOPHEN *10*mg/325 mg TABLET GT SCH ×5 (00:04→23:09)
[2019-01-21 01:06] VITALS: BP_SYST 139
[2019-01-21 07:45] VITALS: BP_SYST 128
[2019-01-21] MEDS: CEFEPIME 2 GM in D5W 100 ML IV SCH ×2 (08:54→20:16)
[2019-01-21] MEDS: ALPRAZolam 0.25 MG TABLET PO SCH ×3 (08:55→20:15)
[2019-01-21] MEDS: CYCLOBENZAPRINE HCL 10 MG TABLET (FLEXERIL) PO SCH ×3 (08:56→20:16)
[2019-01-21] MEDS: RIVAROXABAN 10 MG TABLET PO SCH (08:58)
[2019-01-21] MEDS: CARVEDILOL 25 MG TABLET (COREG) PO SCH ×2 (08:59→20:16)
[2019-01-21] MEDS: LOSARTAN POTASSIUM 50 MG TABLET (COZAAR) PO SCH ×2 (08:59→20:15)
[2019-01-21] MEDS: FAMOTIDINE 20 MG TABLET PO SCH ×2 (08:59→20:14)
[2019-01-21] MEDS: MORPHINE SULFATE 30 MG Immediate Release TABLET PO SCH ×2 (09:07→20:16)
[2019-01-21 11:36] VITALS: BP_SYST 142
[2019-01-21 15:16] VITALS: BP_SYST 98
[2019-01-21 20:00] VITALS: BP_SYST 126
[2019-01-22 00:43] VITALS: BP_SYST 147
[2019-01-22] MEDS: hydrALAZINE HCL 25 MG TABLET PO SCH ×4 (05:23→23:14)
[2019-01-22] MEDS: OXYCODONE/ACETAMINOPHEN *10*mg/325 mg TABLET GT SCH ×4 (05:24→23:13)
[2019-01-22 08:00] VITALS: BP_SYST 130
[2019-01-22] MEDS: CEFEPIME 2 GM in D5W 100 ML IV SCH ×2 (08:38→20:15)
[2019-01-22] MEDS: CYCLOBENZAPRINE HCL 10 MG TABLET (FLEXERIL) PO SCH ×3 (08:38→20:16)
[2019-01-22] MEDS: FAMOTIDINE 20 MG TABLET PO SCH ×2 (08:39→20:15)
[2019-01-22] MEDS: LOSARTAN POTASSIUM 50 MG TABLET (COZAAR) PO SCH ×2 (08:39→20:16)
[2019-01-22] MEDS: ALPRAZolam 0.25 MG TABLET PO SCH ×3 (08:40→20:17)
[2019-01-22] MEDS: CARVEDILOL 25 MG TABLET (COREG) PO SCH ×2 (08:40→20:16)
[2019-01-22] MEDS: MORPHINE SULFATE 30 MG Immediate Release TABLET PO SCH ×2 (08:41→20:17)
[2019-01-22] MEDS: RIVAROXABAN 10 MG TABLET PO SCH (08:44)
[2019-01-22 12:23] VITALS: BP_SYST 134
[2019-01-22 16:55] VITALS: BP_SYST 108
[2019-01-22 20:00] VITALS: BP_SYST 117
[2019-01-23 03:21] VITALS: BP_SYST 127
[2019-01-23] MEDS: hydrALAZINE HCL 25 MG TABLET PO SCH ×4 (05:11→23:12)
[2019-01-23] MEDS: OXYCODONE/ACETAMINOPHEN *10*mg/325 mg TABLET GT SCH ×4 (05:12→23:11)
[2019-01-23 07:48] VITALS: BP_SYST 123
[2019-01-23] MEDS: CYCLOBENZAPRINE HCL 10 MG TABLET (FLEXERIL) PO SCH ×3 (08:14→20:13)
[2019-01-23] MEDS: ALPRAZolam 0.25 MG TABLET PO SCH ×3 (08:14→20:10)
[2019-01-23] MEDS: LOSARTAN POTASSIUM 50 MG TABLET (COZAAR) PO SCH ×2 (08:14→20:11)
[2019-01-23] MEDS: FAMOTIDINE 20 MG TABLET PO SCH ×2 (08:14→20:12)
[2019-01-23] MEDS: CARVEDILOL 25 MG TABLET (COREG) PO SCH ×2 (08:15→20:12)
[2019-01-23] MEDS: MORPHINE SULFATE 30 MG Immediate Release TABLET PO SCH ×2 (08:15→20:13)
[2019-01-23] MEDS: RIVAROXABAN 10 MG TABLET PO SCH (08:17)
[2019-01-23] MEDS: CEFEPIME 2 GM in D5W 100 ML IV SCH ×2 (08:18→20:10)
[2019-01-23 12:49] VITALS: BP_SYST 147
[2019-01-23 16:10] VITALS: BP_SYST 120
[2019-01-24 00:51] VITALS: BP_SYST 136
[2019-01-24] MEDS: hydrALAZINE HCL 25 MG TABLET PO SCH ×3 (05:06→16:55)
[2019-01-24] MEDS: OXYCODONE/ACETAMINOPHEN *10*mg/325 mg TABLET GT SCH ×3 (05:06→16:56)
[2019-01-24] MEDS: MORPHINE SULFATE 30 MG Immediate Release TABLET PO SCH (08:21)
[2019-01-24] MEDS: FAMOTIDINE 20 MG TABLET PO SCH (08:21)
[2019-01-24] MEDS: CYCLOBENZAPRINE HCL 10 MG TABLET (FLEXERIL) PO SCH ×2 (08:22→15:04)
[2019-01-24] MEDS: ALPRAZolam 0.25 MG TABLET PO SCH ×2 (08:22→15:03)
[2019-01-24 08:23] VITALS: BP_SYST 135
[2019-01-24] MEDS: CARVEDILOL 25 MG TABLET (COREG) PO SCH (08:23)
[2019-01-24] MEDS: LOSARTAN POTASSIUM 50 MG TABLET (COZAAR) PO SCH (08:23)
[2019-01-24] MEDS: CEFEPIME 2 GM in D5W 100 ML IV SCH ×2 (08:24→16:52)
[2019-01-24] MEDS: RIVAROXABAN 10 MG TABLET PO SCH (08:29)
[2019-01-24 12:07] VITALS: BP_SYST 139
[2019-01-24 16:30] VITALS: BP_SYST 154
[2019-01-24 16:55] VITALS: BP_SYST 154
== END 2019-01-24 17:55 | disposition home health service (06) | DRG 863 ==
LOC: SED 10:21 → SMU 10:57
PROVIDERS: ADMIT Family Medicine; ATTEND Family Medicine
PROC: 02HV33Z Insertion of Infusion Device into Superior Vena Cava, Percutaneous Approach (ICD-10-PCS; principal; 2019-01-18)
PROC: B548ZZA Ultrasonography of Superior Vena Cava, Guidance (ICD-10-PCS; 2019-01-18)
DX: T81.40XA Infection following a procedure, unspecified, initial encounter (principal); L03.116 Cellulitis of left lower limb; E87.2 Acidosis; M19.90 Unspecified osteoarthritis, unspecified site; G89.4 Chronic pain syndrome; I10 Essential (primary) hypertension; Z96.652 Presence of left artificial knee joint; D64.9 Anemia, unspecified; Y83.8 Other surgical procedures as the cause of abnormal reaction of the patient, or of later complication, without mention of misadventure at the time of the procedure; Z79.899 Other long term (current) drug therapy; Y92.89 Other specified places as the place of occurrence of the external cause
CPT/HCPCS: 36415; 71045; 80053; 83605; 85025; 87040-TC; 87081; 97110-GP; 97116-GP; 97530-GP; C1751; J0692; J2274; J7060

== ENCOUNTER 2019-02-10 09:18 | Inpatient (IN) | payer OTHER ==
[~2019-02-10] VITALS: Ht 172.7 cm; Wt 89.8 kg
[2019-02-10 09:33] VITALS: BP_SYST 146
[2019-02-10 10:36] LABS: BASOPHILS # (AUTO) 0.1 K/uL (0.0-0.2); BASOPHILS % (AUTO) 0.5 % (0.0-2.0); HEMATOCRIT 34.3 % (36-54); LYMPHOCYTES # (AUTO) 0.7 K/uL (1.0-5.5); LYMPHOCYTES % (AUTO) 4.9 % (20.5-51.5); MEAN CORPUSCULAR HEMOGLOBIN 28 pg (27-31); MEAN CORPUSCULAR HGB CONC 32 % (32-36); MEAN CORPUSCULAR VOLUME 88 fL (79.0-98.0); MONOCYTES # (AUTO) 0.8 K/uL (0.0-1.0); MONOCYTES % (AUTO) 5.7 % (1.7-9.3); NEUTROPHILS # (AUTO) 12.1 K/uL (1.8-7.7); NEUTROPHILS % (AUTO) 88.9 % (40.0-70.0); PLATELET COUNT (AUTO) 359 K/uL (130-430); RED BLOOD CELL COUNT(AUTO) 3.92 MIL/uL (4.2-6.2); RED CELL DISTRIBUTION WIDTH 17.6 % (9.0-15.0); WHITE BLOOD COUNT (AUTO) 13.6 K/uL (4.8-10.8)
[2019-02-10 10:56] LABS: ANION GAP 8 (5-15); CALCIUM 9.5 mg/dL (8.4-11.0); CHLORIDE 101 mmol/L (98-107); CREATININE 0.74 mg/dL (0.55-1.30); GLUCOSE 115 mg/dL (70-99); POTASSIUM 4.2 mmol/L (3.5-5.1); SODIUM SERUM 137 mmol/L (136-145); UREA NITROGEN, BLOOD 22 mg/dL (8-21)
[2019-02-10 10:57] LABS: GFR AFRICAN AMERICAN 135 mL/min (>90); PROTHROMBIN TIME 10.1 SECS (9.5-12.5)
[2019-02-10 11:12] LABS: ALANINE AMINOTRANSFERASE 38 U/L (12-78); ALBUMIN 3.3 g/dL (3.4-4.8); ASPARTATE AMINOTRANSFERASE 27 U/L (10-37); FREE T4 (FREE THYROXINE) 0.7 ng/dL (0.6-1.6); TOTAL BILIRUBIN 0.3 mg/dL (0.0-1.0)
[2019-02-10 11:14] LABS: ALCOHOL, BLOOD < 3 mg/dL (<10)
[2019-02-10 11:45] LABS: BILIRUBIN,URINE NEGATIVE (NEGATIVE); BLOOD, URINE NEGATIVE (NEGATIVE); CLARITY/URINE CLEAR (CLEAR); COLOR,URINE YELLOW (YELLOW); GLUCOSE,URINE NEGATIVE (NEGATIVE); KETONES,URINE NEGATIVE (NEGATIVE); LEUKOCYTE ESTERASE ,URINE NEGATIVE (NEGATIVE); NITRITE, URINE NEGATIVE (NEGATIVE); PH,URINE 5.5 (5.0-8.0); PROTEIN URINE NEGATIVE (NEGATIVE); UROBILINOGEN,URINE 0.2 (0.2-1.0)
[2019-02-10 12:12] LABS: BARBITURATE, URINE NEGATIVE (NEG <=200); BENZODIAZEPINE, URINE POSITIVE (NEG <=150); CANNABINOID, URINE NEGATIVE (NEG <=50); COCAINE, URINE NEGATIVE (NEG <=150); METHAMPHETAMINES SCREEN,URINE NEGATIVE (NEG <=500); OPIATE, URINE POSITIVE (NEG <=100); PHENCYCLIDINE SCREEN,URINE NEGATIVE (NEG <=25); UR TRICYCLIC ANTIDEPRESSANTS NEGATIVE (NEG <=300); URINE AMPHETAMINE NEGATIVE (NEG <=500); URINE METHADONE NEGATIVE (NEG <=200); URINE OXYCODONE SCREEN POSITIVE (NEG <=100); URINE PROPOXYPHENE SCREEN NEGATIVE (NEG <=300)
[2019-02-10 15:25] VITALS: BP_SYST 178
[2019-02-10] MEDS: NACL 0.9% 1,000 ML IV SCH (15:59)
[2019-02-10 16:04] VITALS: BP_SYST 173
[2019-02-10] MEDS: OXYCODONE/ACETAMINOPHEN *10*mg/325 mg TABLET PO PRN (16:44)
[2019-02-10] MEDS ORDERED: LOSARTAN POTASSIUM 50 MG TABLET (COZAAR) PO ONE (16:45)
[2019-02-10] MEDS ORDERED: OXYCODONE/ACETAMINOPHEN *10*mg/325 mg TABLET GT SCH (18:00)
[2019-02-10] MEDS ORDERED: MORPHINE SULFATE 30 MG Immediate Release TABLET PO SCH (18:00)
[2019-02-10 18:04] VITALS: BP_SYST 157
[2019-02-10 20:00] VITALS: BP_SYST 196
[2019-02-10] MEDS: hydrALAZINE HCL 10 MG TABLET PO PRN (20:41)
[2019-02-10] MEDS: ALPRAZolam 0.25 MG TABLET PO SCH (20:41)
[2019-02-10] MEDS: CYCLOBENZAPRINE HCL 10 MG TABLET (FLEXERIL) PO SCH (21:54)
[2019-02-10] MEDS: FAMOTIDINE 20 MG TABLET PO SCH (21:54)
[2019-02-10] MEDS: LOSARTAN POTASSIUM 50 MG TABLET (COZAAR) PO SCH (21:56)
[2019-02-10] MEDS: CARVEDILOL 25 MG TABLET (COREG) PO SCH (21:57)
[2019-02-11] VITALS (7 sets, daily range): BP systolic 144–188
[2019-02-11] MEDS: cloNIDine HCL 0.1 MG TABLET PO PRN ×2 (00:54→14:17)
[2019-02-11] MEDS: NACL 0.9% 1,000 ML IV SCH ×2 (05:46→18:10)
[2019-02-11 06:19] LABS: CALCIUM 8.7 mg/dL (8.4-11.0); CREATININE 0.59 mg/dL (0.55-1.30); POTASSIUM 3.8 mmol/L (3.5-5.1)
[2019-02-11 06:21] LABS: BASOPHILS % (AUTO) 0.1 % (0.0-2.0); HEMATOCRIT 30.8 % (36-54); LYMPHOCYTES # (AUTO) 1.3 K/uL (1.0-5.5); LYMPHOCYTES % (AUTO) 10.1 % (20.5-51.5); MEAN CORPUSCULAR HEMOGLOBIN 28 pg (27-31); MEAN CORPUSCULAR HGB CONC 32 % (32-36); MEAN CORPUSCULAR VOLUME 87 fL (79.0-98.0); MONOCYTES # (AUTO) 0.6 K/uL (0.0-1.0); MONOCYTES % (AUTO) 4.5 % (1.7-9.3); NEUTROPHILS # (AUTO) 10.6 K/uL (1.8-7.7); NEUTROPHILS % (AUTO) 85.3 % (40.0-70.0); PLATELET COUNT (AUTO) 305 K/uL (130-430); RED BLOOD CELL COUNT(AUTO) 3.54 MIL/uL (4.2-6.2); RED CELL DISTRIBUTION WIDTH 17.6 % (9.0-15.0); WHITE BLOOD COUNT (AUTO) 12.4 K/uL (4.8-10.8)
[2019-02-11 06:28] LABS: ALBUMIN 2.7 g/dL (3.4-4.8); TOTAL BILIRUBIN 0.2 mg/dL (0.0-1.0)
[2019-02-11] MEDS: LOSARTAN POTASSIUM 50 MG TABLET (COZAAR) PO SCH ×2 (08:40→20:26)
[2019-02-11] MEDS: FAMOTIDINE 20 MG TABLET PO SCH ×2 (08:41→20:26)
[2019-02-11] MEDS: CYCLOBENZAPRINE HCL 10 MG TABLET (FLEXERIL) PO SCH ×3 (08:41→20:26)
[2019-02-11] MEDS: CARVEDILOL 25 MG TABLET (COREG) PO SCH ×2 (08:41→20:25)
[2019-02-11] MEDS: RIVAROXABAN 10 MG TABLET PO SCH (08:43)
[2019-02-11] MEDS: hydrALAZINE HCL 10 MG TABLET PO PRN (16:07)
[2019-02-11] MEDS: ALPRAZolam 0.25 MG TABLET PO SCH (20:26)
[2019-02-12 01:00] VITALS: BP_SYST 158
[2019-02-12] MEDS: cloNIDine HCL 0.1 MG TABLET PO PRN ×2 (05:12→13:14)
[2019-02-12] MEDS: NACL 0.9% 1,000 ML IV SCH ×2 (07:30→20:50)
[2019-02-12 08:04] VITALS: BP_SYST 185
[2019-02-12] MEDS: CARVEDILOL 25 MG TABLET (COREG) PO SCH ×2 (08:14→21:07)
[2019-02-12] MEDS: FAMOTIDINE 20 MG TABLET PO SCH ×2 (08:15→21:06)
[2019-02-12] MEDS: CYCLOBENZAPRINE HCL 10 MG TABLET (FLEXERIL) PO SCH ×3 (08:15→21:07)
[2019-02-12] MEDS: LOSARTAN POTASSIUM 50 MG TABLET (COZAAR) PO SCH ×2 (08:15→21:07)
[2019-02-12] MEDS: RIVAROXABAN 10 MG TABLET PO SCH (08:15)
[2019-02-12 12:19] VITALS: BP_SYST 177
[2019-02-12 16:30] VITALS: BP_SYST 176
[2019-02-12] MEDS: hydrALAZINE HCL 10 MG TABLET PO PRN (17:18)
[2019-02-12 20:00] VITALS: BP_SYST 169
[2019-02-12] MEDS: OXYCODONE/ACETAMINOPHEN *10*mg/325 mg TABLET PO PRN (21:06)
[2019-02-12] MEDS: ALPRAZolam 0.25 MG TABLET PO SCH (21:07)
[2019-02-13] VITALS: BP_SYST 137
[2019-02-13 08:06] VITALS: BP_SYST 166
[2019-02-13] MEDS: CARVEDILOL 25 MG TABLET (COREG) PO SCH (08:13)
[2019-02-13] MEDS: CYCLOBENZAPRINE HCL 10 MG TABLET (FLEXERIL) PO SCH ×2 (08:13→15:01)
[2019-02-13] MEDS: OXYCODONE/ACETAMINOPHEN *10*mg/325 mg TABLET PO PRN ×2 (08:13→16:17)
[2019-02-13] MEDS: LOSARTAN POTASSIUM 50 MG TABLET (COZAAR) PO SCH (08:14)
[2019-02-13] MEDS: RIVAROXABAN 10 MG TABLET PO SCH (08:14)
[2019-02-13] MEDS: FAMOTIDINE 20 MG TABLET PO SCH (08:15)
[2019-02-13] MEDS: NACL 0.9% 1,000 ML IV SCH (10:10)
[2019-02-13 12:32] VITALS: BP_SYST 160
[2019-02-13 14:34] VITALS: BP_SYST 159
[2019-02-13 16:32] VITALS: BP_SYST 151
== END 2019-02-13 17:25 | disposition left against medical advice (07) | DRG 917 ==
LOC: SED 09:18 → STU 14:06 → SMU 02-11 10:13
PROVIDERS: ADMIT Internal Medicine; ATTEND Internal Medicine
DX: T40.601A Poisoning by unspecified narcotics, accidental (unintentional), initial encounter (principal); G92 Toxic encephalopathy; E46 Unspecified protein-calorie malnutrition; F11.20 Opioid dependence, uncomplicated; F13.20 Sedative, hypnotic or anxiolytic dependence, uncomplicated; Z53.21 Procedure and treatment not carried out due to patient leaving prior to being seen by health care provider; R29.6 Repeated falls; I10 Essential (primary) hypertension; M19.90 Unspecified osteoarthritis, unspecified site; G89.4 Chronic pain syndrome; F41.9 Anxiety disorder, unspecified; W18.30XA Fall on same level, unspecified, initial encounter; Z68.30 Body mass index [BMI] 30.0-30.9, adult; Y93.89 Activity, other specified; Y99.8 Other external cause status; Z79.01 Long term (current) use of anticoagulants; Y92.098 Other place in other non-institutional residence as the place of occurrence of the external cause
CPT/HCPCS: 36415; 36600; 70450-TC; 71045; 74018; 80053; 80307; 81003; 82140-TC; 82803-TC; 83605; 83880; 84439; 84484; 85025; 85379; 85610-TC; 87040-TC; 87081; 93005; 97110-GP; 97116-GP; 97530-GP; 99285; G0378; G0482; J7030